=== PATIENT | male | born 1970 | race Two or more races ===

== ENCOUNTER 2024-05-29 17:17 | Inpatient (IN) | payer MEDICAID, OTHER ==
[~2024-05-29] VITALS: Ht 190.5 cm; Wt 113.8 kg
[~2024-05-29 17:17] MED LIST: ALLO100T PO; AMIO200T33 PO; APIX5TAB PO; ATOR-507 PO; DIGO0.12 PO; FURO20TA3 PO; LISI-275 PO; METO-289 PO; SPIR25TA8 PO; TIRZ2.5I2 SC
--- NOTE | 2024-05-29 17:38 | ED.PDOC ---
HPI Comments HPI: Poor Historian. 53-year-old male presents to emergency department for evaluation of palpitation that started at 9:30 a.m. this morning. Palpitations has been constant. Denies any associated chest pain or shortness of breath. He went on a treadmill today as well and did approximately 3 miles. Patient came for c/o palpitations this morning. On arrival of ED triage, patient v-tach. The family states EF is 20%. Patient took all his medications this morning including Eliquis. Initial Vitals: T:97.7 RR:18 O2:100% HR:180 BP:99/66 Past Medical History: A-Fib, CHF, DM, HDL, Gout, HTN Past Surgical History: Denies Social History: Denies smoking, ETOH, or drug use. Medications: Eliquis, Lisinopril, Amiodarone, Inhaler, Spironolactone Allergies: Ampicillin REVIEW OF SYSTEMS: CONSTITUTIONAL: Denies acute: fever, diaphoresis, chills, generalized weakness. HEAD: Denies acute: headache, photophobia Eyes: Denies acute: Double vision, vision loss, eye pain, eye discharge. EARS: Denies acute: tinnitus, hearing loss, ear discharge, ear pain, THROAT: Denies acute: sore throat, swelling, difficulty swallowing , pain with swallowing, change in voice. NECK: Denies acute: neck pain, neck swelling, stiff neck. HEART: Denies acute : chest pain, LUNGS: Denies acute: SOB, wheezing, cough, hemoptysis ABDOMEN: Denies acute: abdominal pain, Nausea, Vomiting, diarrhea, melena , hematemesis, hematochezia SKIN: Denies acute: rash, redness, lesions, itchiness. EXTREMITIES: Denies acute: calf pain, numbness, tingling, weakness, denies pain in extremity. Denies acute: Low back pain. Neuro: Denies acute: focal neurological deficit, motor or sensory focal neurological deficit, tremors, seizure like activity, confusion, dizziness, change in mental status, loss of bowel or bladder function, cauda equina like symptoms. : Denies acute: dysuria, hematuria, flank pain, increase in urinary frequency. PSYCH: Denies acute: hallucination, suicidal ideation, homicidal ideation. PHYSICAL EXAM: General: no acute distress, awake and alert. Head: normocephalic, atraumatic. Neck: supple, trachea is midline, no swelling. Throat: Normal phonation. Eyes:, no erythema, no purulent discharge, no proptosis, no icterus. Heart: regular tachycardic, no significant murmur appreciated. Lungs: no apparent respiratory distress, Able to speak in full sentences. No wheezing, no rhonchi, no crackles. No stridors Clear to auscultation bilaterally. Abdomen: non tender to palpation, non distended, soft, no guarding, no rebound, + bowel sounds. Neuro: Awake, Alert, oriented to name, self, situation, follows commands GCS=15. Speech is normal. Skin: no petechia, no purpura, no cyanosis, non-pale, not jaundice. Lower extremities: --no - Pitting edema no deformity, no focal swelling, no calf TTP. Makes eye contact. moves all four extremities. Face: no apparent facial droop. At approximately 9:45 p.m. we started the cardioversion process. Patient was consented for conscious sedation. Sedation used was Versed 5 mg IV then ketamine 50 mg IV. Patient was cardioverted using 150 joules synchronized. Patient achieved sinus rhythm post cardioversion. Patient did not respond to our chemical intervention earlier with amiodarone and magnesium and metoprolol. Patient has started to become diaphoretic but denies any chest pain or shortness of breath. Vital signs remained stable. We decided to go on with the cardioversion since patient is not responding to chemical intervention. Chief Complaint: Palpitations Time Seen by MD: 17:33 Reviewed Notes: Nurses Notes, Medications, Allergies Allergies: Coded Allergies: Ampicillin (Verified Allergy, Unknown, 05/29/24) Information Source: Patient Mode of Arrival: Ambulatory EKG EKG : Pulse Rate (adult): 180 [place]: Normal Cardiac Rhythm: VT Block: None Hypertrophy: None ST: Normal Was a procedure done? Was a procedure done?: No X-Ray, Labs, Meds, VS Vital Signs Date Time Temp Pulse Resp B/P (MAP) Pulse Ox O2 Delivery O2 Flow Rate FiO2 05/29/24 22:05 66 18 142/68 (92) 95 05/29/24 22:00 64 18 142/64 (90) 95 05/29/24 21:58 65 05/29/24 21:55 64 18 126/60 (82) 95 05/29/24 21:53 64 05/29/24 21:51 157 106/68 05/29/24 21:50 157 18 106/68 (81) 95 05/29/24 21:42 161 05/29/24 21:07 162 93/67 05/29/24 20:51 164 109/74 05/29/24 20:26 165 05/29/24 20:09 164 109/61 05/29/24 19:30 170 18 95 Room Air* 0 21 05/29/24 19:30 98.0 170 18 98/60 (73) 95 98.0 05/29/24 19:01 155 20 98/60 (73) 96 05/29/24 18:50 174 05/29/24 18:24 174 21 96/51 (66) 93 05/29/24 17:44 181 05/29/24 17:40 180 15 93 Room Air* 0 05/29/24 17:40 182 05/29/24 17:39 180 05/29/24 17:38 180 05/29/24 17:32 97.7 180 18 99/66 (77) 100 Lab Test 05/29/24 21:14 05/29/24 20:45 05/29/24 18:35 05/29/24 17:40 Range/Units POC Glucose 166 H 70-106 mg/dl Lactic Acid Level 2.3 *H 2.5 *H 0.4-2.0 mmol/L Troponin I High Sensitivity 1116 *H 831 *H 708 *H </=54 ng/L White Blood Count 11.2 H 4.4-10.8 10^3/uL Red Blood Count 5.43 4.5-5.90 10^6/uL Hemoglobin 16.9 13.5-17.5 g/dL Hematocrit 51.0 41.0-53.0 % Mean Corpuscular Volume 94.1 80.0-100.0 fL Mean Corpuscular Hemoglobin 31.1 28.0-32.0 pg Mean Corpuscular Hemoglobin Concent 33.0 32.0-36.0 g/dL Red Cell Distribution Width 15.7 H 11.8-14.3 % Platelet Count 167 140-450 10^3/uL Mean Platelet Volume 11.5 H 6.9-10.8 fL Neutrophils (%) (Auto) 84.1 H 37.0-80.0 % Lymphocytes (%) (Auto) 12.2 10.0-50.0 % Monocytes (%) (Auto) 3.4 0.0-12.0 % Eosinophils (%) (Auto) 0.0 0.0-7.0 % Basophils (%) (Auto) 0.3 0.0-2.0 % Neutrophils # (Auto) 9.4 H 1.6-8.6 10 ^3/uL Lymphocytes # (Auto) 1.4 0.4-5.4 10 ^3/uL Monocytes # (Auto) 0.4 0-1.3 10 ^3/uL Eosinophils # (Auto) 0 0-0.8 10 ^3/uL Basophils # (Auto) 0 0-0.2 10 ^3/uL Nucleated Red Blood Cells 0.2 % Sodium Level 136 136-145 mmol/L Potassium Level 5.4 H 3.5-5.1 mmol/L Chloride Level 103 98-107 mmol/L Carbon Dioxide Level 21 20-31 mmol/L Anion Gap 12 5-15 Blood Urea Nitrogen 31 H 9-23 mg/dL Creatinine 2.67 H 0.700-1.30 mg/dL Glomerular Filtration Rate Calc 28 >90 mL/min BUN/Creatinine Ratio 11.6 10.0-20.0 Serum Glucose 154 H 74-106 mg/dL Calcium Level 10.7 H 8.7-10.4 mg/dL Magnesium Level 2.2 1.6-2.6 mg/dL Total Bilirubin 1.2 H 0.2-1.0 mg/dL Aspartate Amino Transferase (AST) 204 H 13-40 U/L Alanine Aminotransferase (ALT) 322 H 7-40 U/L Alkaline Phosphatase 92 46-116 U/L B-Type Natriuretic Peptide 194.63 0-100 pg/mL Total Protein 7.7 5.7-8.2 g/dL Albumin 4.6 3.2-4.8 g/dL Current Medications Medications (Trade) Dose Ordered Sig/Howard Route Start Time Stop Time Status Last Admin Amiodarone HCl 100 ml @ 618 mls/hr ONCE ONCE IV 05/29/24 17:30 05/29/24 17:39 DC 05/29/24 17:59 Amiodarone HCl 250 ml @ 33.333 mls/ hr Q7H30M IV 05/29/24 17:45 05/29/24 23:44 DC 05/29/24 19:46 Magnesium Sulfate/ Dextrose 100 ml @ 100 mls/hr ONCE ONCE IV 05/29/24 17:45 05/29/24 18:44 DC 05/29/24 18:22 Amiodarone HCl 100 ml @ 618 mls/hr ONCE ONCE IV 05/29/24 18:30 05/29/24 18:39 DC 05/29/24 19:14 Metoprolol Tartrate (Lopressor) 5 mg ONCE ONCE IV 05/29/24 19:45 05/29/24 20:04 DC 05/29/24 20:09 Metoprolol Tartrate (Lopressor) 5 mg ONCE ONCE IV 05/29/24 20:30 05/29/24 20:47 DC 05/29/24 20:51 Midazolam HCl (Versed Injection) 5 mg ONCE ONCE IV 05/29/24 21:30 05/29/24 21:31 DC 05/29/24 21:42 Ketamine HCl (Ketalar) 50 mg ONCE ONCE IV 05/29/24 22:30 05/29/24 22:41 DC 05/29/24 22:42 Time of 1ST Reevaluation: 17:33 Reevaluation 1ST: Unchanged Time of 2ND Reevaluation: 19:30 (The case was discussed with the admitting team (HPI, physical exam, labs and diagnostic tests that were available at the time of disposition, ED course, treatment plan) on the phone. They agreed to admit the patient to their service and assume care of this patient from this point forward. WILNER Cardozo. ) Time of 3RD Reevaluation: 19:43 (The case was discussed with the cardiology team (HPI, physical exam, labs and diagnostic tests that were available at the time of disposition, ED course, treatment plan) on the phone. They recommend starting the patient on amiodarone drip and give the patient metoprolol 5 mg IV. They recommended if the patient is unstable to cardiovert the patient. They said they will follow up in consult. ) Patient Education/Counseling: Diagnosis, Treatment Family Education/Counseling: Diagnosis, Treatment Departure 1 Departure Time of Disposition: 19:28 Impression: Primary Impression: Ventricular tachyarrhythmia Additional Impression: Elevated troponin Disposition: 09 ADMITTED INPATIENT Admit to: [facility] Condition: Critical Discharged With: Self Critical Care Note Critical Care Time?: No I personally scribed for KASSY PORTER DO ([email or web address]) on 05/29/24 at 17:38. Electronically submitted by Jamal Oglesby [email or web address]). I personally scribed for KASSY PORTER DO ([email or web address]) on 05/29/24 at 19:50. Electronically submitted by Eliud Ramsey ([email or web address]). KASSY PORTER DO May 29, 2024 17:38
[2024-05-29 17:40] VITALS: PULSE 180; RESP 15; O2SAT 93
[2024-05-29] MEDS: AMIODARONE BOLUS KIT 100 ML IV ONE ×2 (17:59→19:14)
[2024-05-29 18:03] LABS: Basophils # (auto) 0 10 ^3/uL (0-0.2); Basophils % (auto) 0.3 % (0.0-2.0); Eosinophils # (auto) 0 10 ^3/uL (0-0.8); Hemoglobin 16.9 g/dL (13.5-17.5); Lymphocytes # (auto) 1.4 10 ^3/uL (0.4-5.4); Lymphocytes % (auto) 12.2 % (10.0-50.0); Mean Corpuscular Hemoglobin 31.1 pg (28.0-32.0); Mean Corpuscular Volume 94.1 fL (80.0-100.0); Monocytes # (auto) 0.4 10 ^3/uL (0-1.3); Monocytes % (auto) 3.4 % (0.0-12.0); Neutrophils # (auto) 9.4 10 ^3/uL (1.6-8.6); Neutrophils % (auto) 84.1 % (37.0-80.0); Nucleated Red Blood Cells % 0.2 %; Platelet Count (auto) 167 10^3/uL (140-450); Red Blood Cells 5.43 10^6/uL (4.5-5.90); Red Cell Distribution Width 15.7 % (11.8-14.3); White Blood Cell 11.2 10^3/uL (4.4-10.8)
--- NOTE | 2024-05-29 18:08 | DVH ---
CHEST RADIOGRAPH Indication: palpitations Technique: Single frontal view of the chest was obtained Comparison: None FINDINGS: Lines and Tubes: None. Defibrillator pads overlying the left chilo thorax. Lungs: No focal consolidation. Pleura: No effusion. No pneumothorax. Cardiomediastinal contours: Cardiomegaly. Bones: No acute osseous abnormality. IMPRESSION: 1. Cardiomegaly. HS:Y
[2024-05-29 18:14] LABS: Albumin 4.6 g/dL (3.2-4.8); Alkaline Phosphatase 92 U/L (46-116); BUN/Creatinine Ratio 11.6 (10.0-20.0)
[2024-05-29 18:15] LABS: Total Protein 7.7 g/dL (5.7-8.2)
[2024-05-29 18:22] LABS: Chloride 103 mmol/L (98-107); Sodium 136 mmol/L (136-145)
[2024-05-29] MEDS: MAGNESIUM SULFATE 1GM/100ML 100 ML IV ONE (18:22)
[2024-05-29 18:25] LABS: Potassium 5.4 mmol/L (3.5-5.1)
[2024-05-29 18:26] LABS: Alanine Aminotransferase 322 U/L (7-40); Aspartate Aminotransferase 204 U/L (13-40); Bilirubin, Total 1.2 mg/dL (0.2-1.0); Blood Urea Nitrogen 31 mg/dL (9-23); Calcium 10.7 mg/dL (8.7-10.4); Glucose 154 mg/dL (74-106)
[2024-05-29 18:29] LABS: Anion Gap 12 (5-15); Carbon Dioxide 21 mmol/L (20-31)
[2024-05-29 19:20] LABS: Lactic Acid w/Reflex 2.5 mmol/L (0.4-2.0)
[2024-05-29 19:30] VITALS: PULSE 170; RESP 18; O2SAT 95
[2024-05-29] MEDS: AMIODARONE 450mg/250ml AE 250 ML IV SCH (19:46)
[2024-05-29] MEDS: METOPROLOL TARTRATE 1MG/1ML-5ML VIAL IV ONE ×2 (20:09→20:51)
[2024-05-29] MEDS: KETAMINE 50mg/ML 10ml Vial 10 ML ONE (21:41)
[2024-05-29] MEDS: MIDAZOLAM HCL 5 MG/ML-1ML VIAL IV ONE (21:42)
[2024-05-29] MEDS ORDERED: NITROGLYCERIN 0.4 MG SL TAB SL PRN (22:30)
[2024-05-29] MEDS ORDERED: MORPHINE SULFATE INJ 2 MG/ml SYRG IV PRN (22:30)
[2024-05-29] MEDS ORDERED: DEXTROSE (50%) 50ML SYRG IV PRN (22:30)
[2024-05-29] MEDS: KETAMINE 50mg/ML 10ml Vial (500mg/10ml) IV ONE (22:42)
[2024-05-29 23:22] LABS: Chloride 102 mmol/L (98-107)
[2024-05-29 23:23] LABS: Anion Gap 11 (5-15); Carbon Dioxide 22 mmol/L (20-31)
[2024-05-29 23:28] LABS: BUN/Creatinine Ratio 11.4 (10.0-20.0)
[2024-05-29 23:33] LABS: Blood Urea Nitrogen 24 mg/dL (9-23); Glucose 141 mg/dL (74-106); Potassium 5.3 mmol/L (3.5-5.1); Sodium 135 mmol/L (136-145)
[2024-05-29 23:59] VITALS: PULSE 64; RESP 19; O2SAT 97
[2024-05-30] MEDS: HEPARIN SODIUM (PORCINE) 5000 UNITS/ML 1ML VIAL SC ONE (00:12)
--- NOTE | 2024-05-30 00:41 | DVHHP2 ---
Admitting Diagnosis: Ventricular tachycardia, JEY, hyperkalemia, Elevated troponin levels History of Present Illness History Source: Patient Exam Limitations: No limitations HPI Mr. Filiberto Perea is a 53 yo male with a history of atrial fibrillation, CHF, DM who presents with a chief complaint of palpitations. Patient reports x 1 day he started having palpitations denies any associated chest pain, dizziness, nausea, vomiting. Patient was started on amiodarone drip in the ED with no changes in cardiac rhythm, metoprolol IV and was then cardioverted into a sinus rhythm in the 60's. Patient with troponin levels 708, 831, BUN 31/2.67 creatinine, liver enzymes AST 204, ALT 322. Patient endorses he feels better now. Patient admitted for further evaluation. Home Meds Reported Medications Tirzepatide (Zepbound) 2.5 Mg/0.5 Ml Inj, 0.5 ML SC QWEEKLY for 28 Days, #2 05/30/24 Lisinopril (Lisinopril) 5 Mg Tab, 1 TAB PO DAILY for 90 Days, #90 05/30/24 Apixaban Base (ELIQUIS) 5 Mg Tab, 1 TAB PO BID for 90 Days, #180 05/30/24 Amiodarone Hcl (Amiodarone Hcl) 200 Mg Tab, 1 TAB PO DAILY for 90 Days, #90 05/30/24 Allopurinol (Allopurinol) 100 Mg Tab, 1 TAB PO DAILY for 30 Days, #30 05/30/24 Atorvastatin Calcium (Lipitor) 40 Mg Tab, 1 TAB PO DAILY for 90 Days, #90 05/30/24 Furosemide (Furosemide) 20 Mg Tab, 1 TAB PO DAILY for 30 Days, #30 05/30/24 Metoprolol Succinate (Metoprolol Succinate Er) 50 Mg Tab, 100 MG PO DAILY for 30 Days, #30 05/30/24 Spironolactone (Spironolactone) 25 Mg Tab, 1 TAB PO DAILY for 90 Days, #90 05/30/24 Digoxin (Digoxin) 125 Mcg Tab, 1 TAB PO DAILY for 30 Days, #30 05/30/24 Past Medical History Cardiac: AFIB, CHF Pulmonary: No pertinent Hx Central Nervous System: No pertinent Hx GI: No pertinent Hx Hemotology/Oncology: No pertinent Hx Hepatobiliary: No pertinent Hx Psychiatric: No pertinent Hx Musculoskeletal: No pertinent Hx Rheumotologic: No pertinent Hx Infectious Disease: No peritnent Hx ENT: No pertinent Hx Renal/: No pertinent Hx Endocrine: NIDDM Dermatology: No pertinent Hx Smoker: No Hx (Negative) Alocohol: None Drugs: None Lives with: With family Domestic Violence: Neg Review of Systems Constitutional: No symptom reported Ears, Nose, & Throat: No symptom reported Eyes: No symptom reported Pulmonary/Respiratory: No symptom reported Cardiovascular: No symptom reported Gastrointestinal: No symptom reported Genitourinary: No symptom reported Musculoskeletal: No symptom reported Skin: No symptom reported Psychiatric: No symptom reported Endocrine: No symptom reported Hemotologic/Lymphatic: No symptom reported H&P Exam Vital Signs Vital Signs Date Time Temp Pulse Resp B/P (MAP) Pulse Ox O2 Delivery O2 Flow Rate FiO2 05/29/24 23:59 97.8 64 19 106/42 (63) 97 97.8 05/29/24 19:30 Room Air* 0 21 General Appeara: Well developed, Well nourished, Normal Appearance Head Exam: Normal inspection Neck Exam: Normal inspection, Non-tender, Normal alignment Eye Exam: bilateral eye Normal inspection, bilateral eye PERRL, bilateral eye EOMI Ear Exam: bilateral ear Auricle normal Nasal Exam: Normal inspection Mouth: Normal Inspection Pulmonary/Respiratory: Normal inspection, Normal breath sounds, Chest non- tender, Lungs clear Cardiovascular/Chest: Normal inspection, Regular rate, Normal Rhythm Peripheral Pulses: 2+ dorsalis pedis (R), 2+ dorsalis pedis (L), 2+ Radial (R), 2+ Radial (L) Abdominal Exam: Normal bowel sounds, Soft Rectal Exam: Deferred, Normal inspection Back Exam: Normal inspection Male Genital Exam: Not done RESPITE CARE PROVIDER Exam: Normal hearing, Normal speech, PERRL Neuro/Mental St: Alert, Oriented Appearance: Appropriate appearance, Appropriate insight Eye contact/ Speech: Cooperative, Good eye contact, Normal speech Thoughts/Psych: Normal thought pattern Skin Exam: Normal inspection, Normal color, Warm/dry Labs/Xrays Labs Test 05/29/24 23:04 05/29/24 21:14 05/29/24 20:45 05/29/24 17:40 Range/Units Sodium Level 135 L 136-145 mmol/L Potassium Level 5.3 H 3.5-5.1 mmol/L Chloride Level 102 98-107 mmol/L Carbon Dioxide Level 22 20-31 mmol/L Anion Gap 11 5-15 Blood Urea Nitrogen 24 H 9-23 mg/dL Creatinine 2.11 H 0.700-1.30 mg/dL Glomerular Filtration Rate Calc 37 >90 mL/min BUN/Creatinine Ratio 11.4 10.0-20.0 Serum Glucose 141 H 74-106 mg/dL Calcium Level 10.0 8.7-10.4 mg/dL Troponin I High Sensitivity 1176 *H </=54 ng/L POC Glucose 166 H 70-106 mg/dl Lactic Acid Level 2.3 *H 0.4-2.0 mmol/L White Blood Count 11.2 H 4.4-10.8 10^3/uL Red Blood Count 5.43 4.5-5.90 10^6/uL Hemoglobin 16.9 13.5-17.5 g/dL Hematocrit 51.0 41.0-53.0 % Mean Corpuscular Volume 94.1 80.0-100.0 fL Mean Corpuscular Hemoglobin 31.1 28.0-32.0 pg Mean Corpuscular Hemoglobin Concent 33.0 32.0-36.0 g/dL Red Cell Distribution Width 15.7 H 11.8-14.3 % Platelet Count 167 140-450 10^3/uL Mean Platelet Volume 11.5 H 6.9-10.8 fL Neutrophils (%) (Auto) 84.1 H 37.0-80.0 % Lymphocytes (%) (Auto) 12.2 10.0-50.0 % Monocytes (%) (Auto) 3.4 0.0-12.0 % Eosinophils (%) (Auto) 0.0 0.0-7.0 % Basophils (%) (Auto) 0.3 0.0-2.0 % Neutrophils # (Auto) 9.4 H 1.6-8.6 10 ^3/uL Lymphocytes # (Auto) 1.4 0.4-5.4 10 ^3/uL Monocytes # (Auto) 0.4 0-1.3 10 ^3/uL Eosinophils # (Auto) 0 0-0.8 10 ^3/uL Basophils # (Auto) 0 0-0.2 10 ^3/uL Nucleated Red Blood Cells 0.2 % Magnesium Level 2.2 1.6-2.6 mg/dL Total Bilirubin 1.2 H 0.2-1.0 mg/dL Aspartate Amino Transferase (AST) 204 H 13-40 U/L Alanine Aminotransferase (ALT) 322 H 7-40 U/L Alkaline Phosphatase 92 46-116 U/L B-Type Natriuretic Peptide 194.63 0-100 pg/mL Total Protein 7.7 5.7-8.2 g/dL Albumin 4.6 3.2-4.8 g/dL Assessment/Plan Problem List: (1) Ventricular tachyarrhythmia (2) Elevated troponin (3) JEY (acute kidney injury) Plan 53 yo male with known history of a fib , CHF, DM presents to the hospital with palpitations. Patient was found to have 1. Ventricular tachycardia 2. Elevated troponin levels 3. Acute Kidney Injury 4. Transaminitis 5. Hyperkalemia mild Admitted to [facility] post cardioversion in ED Cardiology consultation, 2D echocardiogram, serial troponin levels, ASA, Statin Continue amiodarone drip per protocol Gastroenterology consultation Glucose monitoring ac & hs coverage with insulin sliding scale Monitor BMP Lokelma PO x 1 GI ppx DVT ppx Discussed assessment and care plan with patient who verbalizes agreement and understanding of care plan. All questions were answered. Discussed care plan with patient nurse Renaldo PINEDA. Discussed assessment and care plan with supervising MD. Plan discussed with: Patient, Other Code Visit Code Visit Total Time (mins): 45 Additional Comments Additional Comments Additional Comments 53 yo male with known history of chronic AFib, diabetes mellitus type 2, hypertension, congestive heart failure initially presented to the hospital with a palpitation found to have 1. AFib with RVR converted into sinus rhythm after amiodarone. 2. Ventricular tachyarrhythmia 3. Elevated troponin suspect NSTEMI 4. Acute kidney injury suspected secondary to vasomotor nephropathy 5. Transaminitis 6. Hyperkalemia -continue heparin drip, 2D echo cardiology consultation patient went -plan of care discussed with the patient patient's family member at bedside LISA MARIE May 30, 2024 00:41 RENEE YUAN MD May 30, 2024 16:09
[2024-05-30 00:47] LABS: Urine Bacteria None Seen /hpf (None Seen)
[2024-05-30] MEDS: SODIUM ZIRCONIUM CYCL 10 GM PAK PO ONE (00:56)
[2024-05-30 01:25] LABS: Urine Blood Negative /uL (Negative); Urine Clarity Clear (Clear); Urine Color Yellow (Yellow); Urine Protein, UAD TRACE (Negative); Urine Specific Gravity 1.024 (1.001-1.035); Urine Urobilinogen Normal (Negative); Urine WBC <1 /hpf (0 - 3)
[2024-05-30] MEDS ORDERED: HEPARIN DRIP/D5W 100UNITS/ML 250 ML IV SCH (01:30)
[2024-05-30 01:31] LABS: Amphetamine Screen, Urine Neg (NEGATIVE); Barbiturate Scree,Urine Neg (NEGATIVE); Benzodiazephine Screen, Urine Pos (NEGATIVE); Cannabinoid Screen, Urine Neg (NEGATIVE); Cocaine Screen, Urine Neg (NEGATIVE); Opiate Scree,Urine Neg (NEGATIVE); Phencyclidine Screen, Urine Neg (NEGATIVE)
[2024-05-30 02:04] LABS: Basophils # (auto) 0 10 ^3/uL (0-0.2); Basophils % (auto) 0.4 % (0.0-2.0); Eosinophils # (auto) 0 10 ^3/uL (0-0.8); Eosinophils % (auto) 0.3 % (0.0-7.0); Hematocrit 44.9 % (41.0-53.0); Hemoglobin 14.9 g/dL (13.5-17.5); Lymphocytes # (auto) 1.7 10 ^3/uL (0.4-5.4); Lymphocytes % (auto) 15.5 % (10.0-50.0); Mean Corpuscular Hemoglobin 31.1 pg (28.0-32.0); Mean Corpuscular Hgb Conc. 33.3 g/dL (32.0-36.0); Mean Corpuscular Volume 93.5 fL (80.0-100.0); Monocytes # (auto) 0.7 10 ^3/uL (0-1.3); Monocytes % (auto) 6.3 % (0.0-12.0); Neutrophils # (auto) 8.7 10 ^3/uL (1.6-8.6); Neutrophils % (auto) 77.5 % (37.0-80.0); Nucleated Red Blood Cells % 0.1 %; Platelet Count (auto) 158 10^3/uL (140-450); Red Cell Distribution Width 15.7 % (11.8-14.3); White Blood Cell 11.2 10^3/uL (4.4-10.8)
[2024-05-30 02:20] LABS: INR 1.43 (0.9-1.15); Partial Thromboplastin Time 63.9 SEC (24.5-34.5); Prothrombin Time 14.8 sec (9.3-11.8)
[2024-05-30] MEDS: HEPARIN DRIP/D5W 100UNITS/ML 250 ML IV SCH ×3 (03:31→19:40)
[2024-05-30 05:33] LABS: Anion Gap 9 (5-15); Blood Urea Nitrogen 26 mg/dL (9-23); Calcium 9.5 mg/dL (8.7-10.4); Carbon Dioxide 22 mmol/L (20-31); Chloride 101 mmol/L (98-107); Glucose 139 mg/dL (74-106); Potassium 4.1 mmol/L (3.5-5.1); Sodium 132 mmol/L (136-145)
--- NOTE | 2024-05-30 06:43 | ECG ---
[facility] Test Date: 2024-05-29 Test Time: 18:50:35 Pat Name: LEN NUNEZ Department: ER Room: 0287T Gender: M Java Spring Developer: MALCOLM : 1970 Requested By: KASSY PORTER Order Number: [id number] Reading MD: Mark Desai Measurements Intervals [place] Rate: 174 P: 0 TN: 118 QRS: 93 QRSD: 215 T: 90 QT: 310 QTc: 528 Interpretive Statements Extreme tachycardia with wide complex, no further rhythm analysis attempted Baseline wander in lead(s) I,II,III,aVL,aVF,V1,V2,V3,V4,V5,V6 Electronically Signed On 06-01-2024 12:39:57 PST by Mark Desai Please click the below link to view image of tracing.
--- NOTE | 2024-05-30 06:44 | ECG ---
[facility] Test Date: 2024-05-29 Test Time: 20:26:01 Pat Name: LEN NUNEZ Department: ED Room: 0287T Gender: M Technician Support Engineer: JASON : 1970 Requested By: KASSY PORTER Order Number: [id number] Reading MD: Mark Desai Measurements Intervals [place] Rate: 165 P: 68 CO: 73 QRS: 91 QRSD: 221 T: 88 QT: 352 QTc: 583 Interpretive Statements Sinus tachycardia Consider right atrial enlargement LVH with IVCD and secondary repol abnrm Prolonged QT interval Baseline wander in lead(s) V1,V2,V3,V5 Electronically Signed On 06-01-2024 12:40:16 PST by Mark Desai Please click the below link to view image of tracing.
[2024-05-30] MEDS: InsuLIN REG 1unit/0.01ml Soln (100units/ml) SC SCH (06:45)
[2024-05-30] MEDS: ACCU-CHEK COMFORT CURVE STRIP VI SCH (06:45)
--- NOTE | 2024-05-30 06:45 | ECG ---
[facility] Test Date: 2024-05-29 Test Time: 21:58:49 Pat Name: LEN NUNEZ Department: ED Room: 0287T Gender: M Ruby On Rails Consultant: JASON : 1970 Requested By: KASSY PORTER Order Number: [id number] Reading MD: Mark Desai Measurements Intervals [place] Rate: 65 P: 53 IN: 202 QRS: -46 QRSD: 111 T: -74 QT: 430 QTc: 448 Interpretive Statements Sinus rhythm Ventricular premature complex Borderline prolonged IN interval Left atrial enlargement Left anterior fascicular block Probable anterior infarct, age indeterminate Electronically Signed On 06-01-2024 12:41:38 PST by Mark Desai Please click the below link to view image of tracing.
--- NOTE | 2024-05-30 06:46 | ECG ---
[facility] Test Date: 2024-05-30 Test Time: 00:39:10 Pat Name: LEN NUNEZ Department: ED Room: 0287T Gender: M Party Plan Sales Agent: JASON : 1970 Requested By: LISA MARIE Order Number: [id number] Reading MD: Mark Desai Measurements Intervals [place] Rate: 64 P: 58 CO: 188 QRS: -44 QRSD: 137 T: 243 QT: 446 QTc: 461 Interpretive Statements Sinus rhythm Consider left atrial enlargement RBBB and LAFB Nonspecific T abnormalities, lateral leads Electronically Signed On 06-01-2024 12:42:44 PST by Makr Desai Please click the below link to view image of tracing.
[2024-05-30 07:50] VITALS: PULSE 64; RESP 16; O2SAT 95
[2024-05-30 10:33] LABS: INR 1.31 (0.9-1.15); Prothrombin Time 13.6 sec (9.3-11.8)
[2024-05-30] MEDS: FUROSEMIDE 40 MG/4 ML VIAL IV ONE (11:19)
[2024-05-30 11:21] LABS: Albumin 3.9 g/dL (3.2-4.8); Bilirubin, Total 0.9 mg/dL (0.2-1.0); Total Protein 6.8 g/dL (5.7-8.2)
[2024-05-30 11:22] LABS: Bilirubin, Direct 0.4 mg/dL (<0.3)
--- NOTE | 2024-05-30 11:51 | DVHINCON2 ---
GI Consult Consult Note GI consult note Date of Consultation: 05/30/2024 Chief Complaint: Elevated LFTs Referring Physician: Atilio DARBY H&P: 53-year-old male presented with palpitations No history of liver problems in past per patient No abdominal pain. No nausea or vomit. No melena or red blood in stool Patient has history of heavy alcohol use, quit four years ago. Denies use of Tylenol Patient does take cholesterol medication for the past 1-2 years Past Medical History: A-Fib, CHF, DM, HDL, Gout, HTN Past Surgical History: Denies Social History: NO smoking, quit four years drinking ETOH Family History: Noncontributory Review of Systems: Constitutional: no fever, chill, weight loss HEENT: no eye pain, no hearing loss, no oral lesion, no scleral icterus Heart: no chest pain, no chest pressure Lung: no cough, no dyspnea with exertion Abdomen: see HPI Physical exam: General: NAD, AAOX3 Chest: lung jo clear to auscultation Heart: RRR, no murmur Abdomen: non-distended, no tenderness to palpation, +BS Labs: Labs Test 05/30/24 09:45 05/30/24 06:40 05/30/24 04:30 05/30/24 01:52 Range/Units Prothrombin Time 13.6 H 9.3-11.8 sec Prothrombin Time INR 1.31 H 0.9-1.15 Activated Partial Thromboplast Time 41.0 H 24.5-34.5 SEC POC Glucose 128 H 70-106 mg/dl Sodium Level 132 L 136-145 mmol/L Potassium Level 4.1 3.5-5.1 mmol/L Chloride Level 101 98-107 mmol/L Carbon Dioxide Level 22 20-31 mmol/L Anion Gap 9 5-15 Blood Urea Nitrogen 26 H 9-23 mg/dL Creatinine 1.63 H 0.700-1.30 mg/dL Glomerular Filtration Rate Calc 51 >90 mL/min BUN/Creatinine Ratio 16.0 10.0-20.0 Serum Glucose 139 H 74-106 mg/dL Calcium Level 9.5 8.7-10.4 mg/dL Total Bilirubin 0.9 0.2-1.0 mg/dL Direct Bilirubin 0.4 H <0.3 mg/dL Aspartate Amino Transferase (AST) 146 H 13-40 U/L Alanine Aminotransferase (ALT) 295 H 7-40 U/L Alkaline Phosphatase 74 46-116 U/L Troponin I High Sensitivity 1078 *H </=54 ng/L Total Protein 6.8 5.7-8.2 g/dL Albumin 3.9 3.2-4.8 g/dL White Blood Count 11.2 H 4.4-10.8 10^3/uL Red Blood Count 4.80 4.5-5.90 10^6/uL Hemoglobin 14.9 13.5-17.5 g/dL Hematocrit 44.9 # 41.0-53.0 % Mean Corpuscular Volume 93.5 80.0-100.0 fL Mean Corpuscular Hemoglobin 31.1 28.0-32.0 pg Mean Corpuscular Hemoglobin Concent 33.3 32.0-36.0 g/dL Red Cell Distribution Width 15.7 H 11.8-14.3 % Platelet Count 158 140-450 10^3/uL Mean Platelet Volume 11.3 H 6.9-10.8 fL Neutrophils (%) (Auto) 77.5 37.0-80.0 % Lymphocytes (%) (Auto) 15.5 10.0-50.0 % Monocytes (%) (Auto) 6.3 0.0-12.0 % Eosinophils (%) (Auto) 0.3 0.0-7.0 % Basophils (%) (Auto) 0.4 0.0-2.0 % Neutrophils # (Auto) 8.7 H 1.6-8.6 10 ^3/uL Lymphocytes # (Auto) 1.7 0.4-5.4 10 ^3/uL Monocytes # (Auto) 0.7 0-1.3 10 ^3/uL Eosinophils # (Auto) 0 0-0.8 10 ^3/uL Basophils # (Auto) 0 0-0.2 10 ^3/uL Nucleated Red Blood Cells 0.1 % Test 05/30/24 00:42 05/29/24 20:45 05/29/24 17:40 Range/Units Urine Color Yellow Yellow Urine Clarity Clear Clear Urine pH 5.0 5.0-9.0 Urine Specific [place] 1.024 1.001-1.035 Urine Protein Trace H Negative Urine Ketones Trace Negative Urine Blood Negative Negative /uL Urine Nitrite Negative Negative Urine Bilirubin Negative Negative Urine Urobilinogen Normal Negative mg/dL Urine Leukocyte Esterase Negative Negative /uL Urine RBC 1 0 - 3 /hpf Urine WBC <1 0 - 3 /hpf Urine Squamous Epithelial Cells Few <5 /hpf Urine Bacteria None seen None Seen /hpf Urine Glucose Normal Normal mg/dL Urine Opiates Screen Neg NEGATIVE Urine Fentanyl Screen Neg NEGATIVE Urine Barbiturates Screen Neg NEGATIVE Urine Phencyclidine Screen Neg NEGATIVE Urine Amphetamines Screen Neg NEGATIVE Urine Benzodiazepines Screen Pos NEGATIVE Urine Cocaine Screen Neg NEGATIVE Urine Cannabinoids Screen Neg NEGATIVE Lactic Acid Level 2.3 *H 0.4-2.0 mmol/L Magnesium Level 2.2 1.6-2.6 mg/dL B-Type Natriuretic Peptide 194.63 0-100 pg/mL Imaging: Assessment: Ventricular tachycardia History of AFib Elevated LFTs History heavy alcohol in past Plan: Discussed with Dr. Villagran Monitor labs Ultrasound of liver Hepatitis panel Cardiology consult pending We will continue to monitor the patient Discussed plan with patient and RN Thank you for this consult Date of Service: May 30, 2024 Billing Provider: MARY FLORES Common Visit Codes: CONSULT ONLY Consultation Codes: 59260-[id number] CONSULT <60MIN MARY FLORES May 30, 2024 11:51
--- NOTE | 2024-05-30 12:34 | DVH ---
ULTRASOUND ABDOMEN LIMITED INDICATION: elevated LFTs TECHNIQUE: Multiple real-time sonographic images of the abdomen were obtained. COMPARISON: None FINDINGS: The left hepatic lobe is not adequately seen on the current study. The visualized liver parenchyma appears homogenous . The liver measures 15 cm. No discrete hepatic lesion or intrahepatic bilia ry ductal dilatation is identified. There is no evidence of gallstones, gallbladder wall thickening or pericholecystic fluid. The common biliary duct is not dilated. The right kidney measures 11.7 cm length. No sonographic evidence of nephrolithiasis or hydronephro sis. Pancreas is obscured by bowel gas. IMPRESSION: 1. Limited ultrasound study with nonvisualization of the left hepatic lobe and pancreas. 2. Remaining right upper abdominal structures appear within normal limits. HS:Y
--- NOTE | 2024-05-30 12:43 | DVHCONRES ---
Date Seen: May 30, 2024 Resident Creating Document: АЛЕКСАНДР BARNES RESIDENT Referring Physician Ruben DARBY Reason for Consultation JEY History of Present Illness Patient is 53-year-old male with past medical history of heart failure reduced ejection fraction, diabetes mellitus, atrial fibrillation, hypertension presented to hospital with a chief complaint of palpitation. As per patient he started having palpitation that brought him to the hospital. During emergency department evaluation, patient is started on amiodarone drip, converted to sinus rhythm. Nephrology consultation was done for evaluation of JEY. Laboratory findings showed trending down gradient from 2.67-1.63, GFR trending up 51. Improving urine output. Denies any other symptoms including abdominal pain, chest pain, shortness of breath, any other symptoms. Past Medical History Hypertension, diabetes mellitus, gout, hyperlipidemia, HFrEF, atrial fibrillation. Past Surgical History Denies Social History Denies smoking or alcohol use. Quit alcohol for five years ago Allergies: Coded Allergies: Ampicillin (Verified Allergy, Unknown, 05/29/24) Home Meds Reported Medications Tirzepatide (Zepbound) 2.5 Mg/0.5 Ml Inj, 0.5 ML SC QWEEKLY for 28 Days, #2 05/30/24 Lisinopril (Lisinopril) 5 Mg Tab, 1 TAB PO DAILY for 90 Days, #90 05/30/24 Apixaban Base (ELIQUIS) 5 Mg Tab, 1 TAB PO BID for 90 Days, #180 05/30/24 Amiodarone Hcl (Amiodarone Hcl) 200 Mg Tab, 1 TAB PO DAILY for 90 Days, #90 05/30/24 Allopurinol (Allopurinol) 100 Mg Tab, 1 TAB PO DAILY for 30 Days, #30 05/30/24 Atorvastatin Calcium (Lipitor) 40 Mg Tab, 1 TAB PO DAILY for 90 Days, #90 05/30/24 Furosemide (Furosemide) 20 Mg Tab, 1 TAB PO DAILY for 30 Days, #30 05/30/24 Metoprolol Succinate (Metoprolol Succinate Er) 50 Mg Tab, 100 MG PO DAILY for 30 Days, #30 05/30/24 Spironolactone (Spironolactone) 25 Mg Tab, 1 TAB PO DAILY for 90 Days, #90 05/30/24 Digoxin (Digoxin) 125 Mcg Tab, 1 TAB PO DAILY for 30 Days, #30 05/30/24 Current Medications Current Medications Medications (Trade) Dose Ordered Sig/Howard Route PRN Reason Start Time Stop Time Status Last Admin Amiodarone HCl 250 ml @ 33.333 mls/ hr [id number] IV 05/29/24 17:45 05/29/24 23:44 DC 05/29/24 19:46 Morphine Sulfate 2 mg Q30M PRN IV FOR CHEST PAIN 05/29/24 22:30 Nitroglycerin (Ntrostat Sublingual) 0.4 mg Q5MINP PRN SL FOR CHEST PAIN 05/29/24 22:30 Diagnostic Test (Pha) (Accu-Chek Comfort Curve T) 1 strip ACHS 05/30/24 07:00 05/30/24 11:50 Insulin Human Regular (InsuLIN R) ACHS SC 05/30/24 07:00 Dextrose 50 ml UD PRN IV Blood Sugar LESS THAN 60 05/29/24 22:30 Heparin Sodium/ Dextrose 250 ml @ 15.24 mls/ hr [id number] IV 05/30/24 01:30 UNV Heparin Sodium/ Dextrose 250 ml @ 10 mls/hr Q24H IV 05/30/24 03:30 05/30/24 11:37 DC 05/30/24 03:31 Furosemide (Lasix Injection) 40 mg DAILY IV 05/31/24 10:00 Heparin Sodium/ Dextrose 250 ml @ 12 mls/hr [id number] IV 05/30/24 11:45 05/30/24 11:52 Review of Systems Eyes: No Pain, No Vision change, No Conjunctivae inflammation, No Eyelid inflammation, No Other, No Redness ENT: No Ear pain, No Ear discharge, No Nose pain, No Nose discharge, No Nose congestion, No Mouth pain, No Mouth swelling, No Throat pain, No Throat swelling, No Other Cardiovascular: No Chest Pain, No Palpitations, No Orthopnea, No Paroxysmal Noc. Dyspnea, No Edema, No Lt Headedness, No Other Respiratory: No Cough, No Dry, No Shortness of breath, No SOB with excertion, No Wheezing, No Hemoptysis, No Pleuritic Pain, No Sputum, No Other Gastrointestinal: No Nausea, No Vomiting, No Abdominal Pain, No Diarrhea, No Constipation, No Melena, No Hematochezia, No Other Genitourinary: No Dysuria, No Frequency, No Incontinence, No Hematuria, No Retention, No Other Musculoskeletal: No other, No neck pain, No shoulder pain, No arm pain, No back pain, No hand pain, No leg pain, No foot pain Skin: No Rash, No Lesions, No Jaundice, No Bruising, No Other Vital Signs Vital Signs Date Time Temp Pulse Resp B/P (MAP) Pulse Ox O2 Delivery O2 Flow Rate FiO2 05/30/24 11:19 117/63 05/30/24 11:00 65 16 93 05/30/24 07:50 Room Air* 0 21 05/30/24 07:50 98.0 98.0 Physical Exam General Appearance: Cooperative. Well developed. Well nourished. NAD Head Exam: Normal inspection Neck Exam: Normal inspection. Non-tender. Normal alignment Pulmonary/Respiratory: Chest non-tender. Clear bilateral breath sounds Cardiovascular/Chest: Regular rate and rhythm. No murmurs. No JVD. Peripheral Pulses: 2+ Radial (R). 2+ Radial (L). 2+ Pedal (R). 2+ Pedal (L) Abdominal Exam: Normal bowel sounds. Soft. Nontender. No hepatospenomegaly. No masses Ankle Exam: Negative ankle edema Lower extremities: Negative lower extremity edema Neuro/Mental Status: A&O x4. Coherent Thoughts/Psych: Normal thought pattern. Appropriate mood and affect. Good judgement and insight Appearance: In no acute distress Skin Exam: Normal inspection. Normal color. Warm. Dry Labs/Diagnostic Data Labs Test 05/30/24 11:57 05/30/24 11:49 05/30/24 09:45 05/30/24 04:30 Range/Units POC Glucose 127 H 70-106 mg/dl Prothrombin Time 13.6 H 9.3-11.8 sec Prothrombin Time INR 1.31 H 0.9-1.15 Activated Partial Thromboplast Time 41.0 H 24.5-34.5 SEC Sodium Level 132 L 136-145 mmol/L Potassium Level 4.1 3.5-5.1 mmol/L Chloride Level 101 98-107 mmol/L Carbon Dioxide Level 22 20-31 mmol/L Anion Gap 9 5-15 Blood Urea Nitrogen 26 H 9-23 mg/dL Creatinine 1.63 H 0.700-1.30 mg/dL Glomerular Filtration Rate Calc 51 >90 mL/min BUN/Creatinine Ratio 16.0 10.0-20.0 Serum Glucose 139 H 74-106 mg/dL Calcium Level 9.5 8.7-10.4 mg/dL Total Bilirubin 0.9 0.2-1.0 mg/dL Direct Bilirubin 0.4 H <0.3 mg/dL Aspartate Amino Transferase (AST) 146 H 13-40 U/L Alanine Aminotransferase (ALT) 295 H 7-40 U/L Alkaline Phosphatase 74 46-116 U/L Troponin I High Sensitivity 1078 *H </=54 ng/L Total Protein 6.8 5.7-8.2 g/dL Albumin 3.9 3.2-4.8 g/dL Test 05/30/24 01:52 05/30/24 00:42 05/29/24 20:45 05/29/24 17:40 Range/Units White Blood Count 11.2 H 4.4-10.8 10^3/uL Red Blood Count 4.80 4.5-5.90 10^6/uL Hemoglobin 14.9 13.5-17.5 g/dL Hematocrit 44.9 # 41.0-53.0 % Mean Corpuscular Volume 93.5 80.0-100.0 fL Mean Corpuscular Hemoglobin 31.1 28.0-32.0 pg Mean Corpuscular Hemoglobin Concent 33.3 32.0-36.0 g/dL Red Cell Distribution Width 15.7 H 11.8-14.3 % Platelet Count 158 140-450 10^3/uL Mean Platelet Volume 11.3 H 6.9-10.8 fL Neutrophils (%) (Auto) 77.5 37.0-80.0 % Lymphocytes (%) (Auto) 15.5 10.0-50.0 % Monocytes (%) (Auto) 6.3 0.0-12.0 % Eosinophils (%) (Auto) 0.3 0.0-7.0 % Basophils (%) (Auto) 0.4 0.0-2.0 % Neutrophils # (Auto) 8.7 H 1.6-8.6 10 ^3/uL Lymphocytes # (Auto) 1.7 0.4-5.4 10 ^3/uL Monocytes # (Auto) 0.7 0-1.3 10 ^3/uL Eosinophils # (Auto) 0 0-0.8 10 ^3/uL Basophils # (Auto) 0 0-0.2 10 ^3/uL Nucleated Red Blood Cells 0.1 % Urine Color Yellow Yellow Urine Clarity Clear Clear Urine pH 5.0 5.0-9.0 Urine Specific [place] 1.024 1.001-1.035 Urine Protein Trace H Negative Urine Ketones Trace Negative Urine Blood Negative Negative /uL Urine Nitrite Negative Negative Urine Bilirubin Negative Negative Urine Urobilinogen Normal Negative mg/dL Urine Leukocyte Esterase Negative Negative /uL Urine RBC 1 0 - 3 /hpf Urine WBC <1 0 - 3 /hpf Urine Squamous Epithelial Cells Few <5 /hpf Urine Bacteria None seen None Seen /hpf Urine Glucose Normal Normal mg/dL Urine Opiates Screen Neg NEGATIVE Urine Fentanyl Screen Neg NEGATIVE Urine Barbiturates Screen Neg NEGATIVE Urine Phencyclidine Screen Neg NEGATIVE Urine Amphetamines Screen Neg NEGATIVE Urine Benzodiazepines Screen Pos NEGATIVE Urine Cocaine Screen Neg NEGATIVE Urine Cannabinoids Screen Neg NEGATIVE Lactic Acid Level 2.3 *H 0.4-2.0 mmol/L Magnesium Level 2.2 1.6-2.6 mg/dL B-Type Natriuretic Peptide 194.63 0-100 pg/mL Assessment JEY likely cardiorenal AFib with RVR Acute on chronic HFrEF NSTEMI type 2 likely due to above Hypertension Gout Hyperkalemia: Resolved Transaminitis Plan/ recommendation - IV Lasix 40 once daily -follow with urine electrolytes urine sodium, urine creatinine, urine protein. -renal ultrasound: Right kidney 11.7, no sonographic evidence of nephrolithiasis or hydronephrosis. -history of heart failure reduced ejection fraction, pending echocardiogram -monitor urine output, serum electrolytes. -avoid nephrotoxic drugs -we will continue to follow closely. Addendum Patient seen and examined, plan discussed with resident. Agree with above, we will follow closely d/w bedside Plan discussed with: Patient, Other (RN) АЛЕКСАНДР BARNES May 30, 2024 12:43 BETTY LAI MD May 30, 2024 18:31
--- NOTE | 2024-05-30 18:28 | DVHINCON2 ---
Date Seen: May 30, [address] Arriaga Reason for Consultation Ventricular tachycardia History of Present Illness 53-year-old gentleman with a previous history of myocardial infarction and coronary artery disease was on his treadmill today. He developed palpitations and shortness of breath. He came to the hospital was found to have sustained ventricular tachycardia. He was cardioverted a. He went into sinus rhythm. His has troponin elevations and cardiac evaluation was requested. He denies any chest pain. He has had a history of diabetes mellitus hypertension and previous myocardial infarction as mentioned. Past Medical History He states he has had a previous myocardial infarction treated in [facility]. History of diabetes and hypertension. He has now been found to have acute kidney injury. He denies any previous stroke or cardiomyopathy. No previous history of ventricular tachycardia. Past Surgical History No past surgical history of significance. Allergies: Coded Allergies: Ampicillin (Verified Allergy, Unknown, 05/29/24) Home Meds Reported Medications Tirzepatide (Zepbound) 2.5 Mg/0.5 Ml Inj, 0.5 ML SC QWEEKLY for 28 Days, #2 05/30/24 Lisinopril (Lisinopril) 5 Mg Tab, 1 TAB PO DAILY for 90 Days, #90 05/30/24 Apixaban Base (ELIQUIS) 5 Mg Tab, 1 TAB PO BID for 90 Days, #180 05/30/24 Amiodarone Hcl (Amiodarone Hcl) 200 Mg Tab, 1 TAB PO DAILY for 90 Days, #90 05/30/24 Allopurinol (Allopurinol) 100 Mg Tab, 1 TAB PO DAILY for 30 Days, #30 05/30/24 Atorvastatin Calcium (Lipitor) 40 Mg Tab, 1 TAB PO DAILY for 90 Days, #90 05/30/24 Furosemide (Furosemide) 20 Mg Tab, 1 TAB PO DAILY for 30 Days, #30 05/30/24 Metoprolol Succinate (Metoprolol Succinate Er) 50 Mg Tab, 100 MG PO DAILY for 30 Days, #30 05/30/24 Spironolactone (Spironolactone) 25 Mg Tab, 1 TAB PO DAILY for 90 Days, #90 05/30/24 Digoxin (Digoxin) 125 Mcg Tab, 1 TAB PO DAILY for 30 Days, #30 05/30/24 Current Medications Current Medications Medications (Trade) Dose Ordered Sig/Howard Route PRN Reason Start Time Stop Time Status Last Admin Morphine Sulfate 2 mg Q30M PRN IV FOR CHEST PAIN 05/29/24 22:30 Nitroglycerin (Ntrostat Sublingual) 0.4 mg Q5MINP PRN SL FOR CHEST PAIN 05/29/24 22:30 Diagnostic Test (Pha) (Accu-Chek Comfort Curve T) 1 strip ACHS 05/30/24 07:00 05/30/24 17:44 Insulin Human Regular (InsuLIN R) ACHS SC 05/30/24 07:00 05/30/24 17:45 Dextrose 50 ml UD PRN IV Blood Sugar LESS THAN 60 05/29/24 22:30 Heparin Sodium/ Dextrose 250 ml @ 15.24 mls/ hr [id number] IV 05/30/24 01:30 UNV Heparin Sodium/ Dextrose 250 ml @ 10 mls/hr Q24H IV 05/30/24 03:30 05/30/24 11:37 DC 05/30/24 03:31 Furosemide (Lasix Injection) 40 mg DAILY IV 05/31/24 10:00 Heparin Sodium/ Dextrose 250 ml @ 12 mls/hr [id number] IV 05/30/24 11:45 05/30/24 11:52 Review of Systems No constitutional symptoms of fevers chills or weight loss. Cardiac and respiratory as noted above. GI musculoskeletal endocrine hematologic oncologic dermatologic as noted above. Endocrinologic as noted above with a history of diabetes mellitus. No hematologic malignancies. Vital Signs Vital Signs Date Time Temp Pulse Resp B/P (MAP) Pulse Ox O2 Delivery O2 Flow Rate FiO2 05/30/24 17:00 71 19 113/62 (79) 92 05/30/24 07:50 Room Air* 0 21 05/30/24 07:50 98.0 98.0 Physical Exam He is lying in bed without distress. HEENT examination is otherwise unremarkable orally well hydrated. Trachea central neck supple thyroid is not valve was no jugular distention no bruits. Lungs reveal good air entry no rales or rhonchi. Heart exam reveals regular S1-S2 soft S4. Abdominal examination is unremarkable. Extremities reveal adequate perfusion without clubbing or cyanosis no edema. Neurologically intact. Integumentary is otherwise within normal limits. His EKG shows sinus rhythm with significant ST segment changes throughout the inferior lateral leads suggesting global ischemia. His initial EKG showed sustained ventricular tachycardia. Labs/Diagnostic Data Labs Test 05/30/24 17:24 05/30/24 14:07 05/30/24 09:45 05/30/24 04:30 Range/Units POC Glucose 134 H 70-106 mg/dl Troponin I High Sensitivity 962 *H </=54 ng/L Prothrombin Time 13.6 H 9.3-11.8 sec Prothrombin Time INR 1.31 H 0.9-1.15 Activated Partial Thromboplast Time 41.0 H 24.5-34.5 SEC Sodium Level 132 L 136-145 mmol/L Potassium Level 4.1 3.5-5.1 mmol/L Chloride Level 101 98-107 mmol/L Carbon Dioxide Level 22 20-31 mmol/L Anion Gap 9 5-15 Blood Urea Nitrogen 26 H 9-23 mg/dL Creatinine 1.63 H 0.700-1.30 mg/dL Glomerular Filtration Rate Calc 51 >90 mL/min BUN/Creatinine Ratio 16.0 10.0-20.0 Serum Glucose 139 H 74-106 mg/dL Calcium Level 9.5 8.7-10.4 mg/dL Total Bilirubin 0.9 0.2-1.0 mg/dL Direct Bilirubin 0.4 H <0.3 mg/dL Aspartate Amino Transferase (AST) 146 H 13-40 U/L Alanine Aminotransferase (ALT) 295 H 7-40 U/L Alkaline Phosphatase 74 46-116 U/L Total Protein 6.8 5.7-8.2 g/dL Albumin 3.9 3.2-4.8 g/dL Test 05/30/24 01:52 05/30/24 00:42 05/29/24 20:45 05/29/24 17:40 Range/Units White Blood Count 11.2 H 4.4-10.8 10^3/uL Red Blood Count 4.80 4.5-5.90 10^6/uL Hemoglobin 14.9 13.5-17.5 g/dL Hematocrit 44.9 # 41.0-53.0 % Mean Corpuscular Volume 93.5 80.0-100.0 fL Mean Corpuscular Hemoglobin 31.1 28.0-32.0 pg Mean Corpuscular Hemoglobin Concent 33.3 32.0-36.0 g/dL Red Cell Distribution Width 15.7 H 11.8-14.3 % Platelet Count 158 140-450 10^3/uL Mean Platelet Volume 11.3 H 6.9-10.8 fL Neutrophils (%) (Auto) 77.5 37.0-80.0 % Lymphocytes (%) (Auto) 15.5 10.0-50.0 % Monocytes (%) (Auto) 6.3 0.0-12.0 % Eosinophils (%) (Auto) 0.3 0.0-7.0 % Basophils (%) (Auto) 0.4 0.0-2.0 % Neutrophils # (Auto) 8.7 H 1.6-8.6 10 ^3/uL Lymphocytes # (Auto) 1.7 0.4-5.4 10 ^3/uL Monocytes # (Auto) 0.7 0-1.3 10 ^3/uL Eosinophils # (Auto) 0 0-0.8 10 ^3/uL Basophils # (Auto) 0 0-0.2 10 ^3/uL Nucleated Red Blood Cells 0.1 % Hemoglobin A1c 6.1 H <5.7 % A1C Urine Color Yellow Yellow Urine Clarity Clear Clear Urine pH 5.0 5.0-9.0 Urine Specific [place] 1.024 1.001-1.035 Urine Protein Trace H Negative Urine Ketones Trace Negative Urine Blood Negative Negative /uL Urine Nitrite Negative Negative Urine Bilirubin Negative Negative Urine Urobilinogen Normal Negative mg/dL Urine Leukocyte Esterase Negative Negative /uL Urine RBC 1 0 - 3 /hpf Urine WBC <1 0 - 3 /hpf Urine Squamous Epithelial Cells Few <5 /hpf Urine Bacteria None seen None Seen /hpf Urine Glucose Normal Normal mg/dL Urine Opiates Screen Neg NEGATIVE Urine Fentanyl Screen Neg NEGATIVE Urine Barbiturates Screen Neg NEGATIVE Urine Phencyclidine Screen Neg NEGATIVE Urine Amphetamines Screen Neg NEGATIVE Urine Benzodiazepines Screen Pos NEGATIVE Urine Cocaine Screen Neg NEGATIVE Urine Cannabinoids Screen Neg NEGATIVE Lactic Acid Level 2.3 *H 0.4-2.0 mmol/L Magnesium Level 2.2 1.6-2.6 mg/dL B-Type Natriuretic Peptide 194.63 0-100 pg/mL Assessment Chronic kidney disease. Sustained ventricular tachycardia probably secondary to scarring and or recurrent ischemia. 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 Plan/Recommendation Patient's kidneys are better he will require cardiac catheterization to rule out ischemia. He will most likely require revascularization if need be. He may also require ICD. Correction of the electrolytes and risk factor modification to continue. We will schedule for an angiographic evaluation tomorrow if his creatinine is better. Plan discussed with: Patient, Spouse Date of Service: May 30, 2024 Billing Provider: DONELL OROURKE Sr., MD Cardiology Common Codes: 83501-TTBSAPD INP/OBS CARE (High) DONELL OROURKE Sr., MD May 30, 2024 18:27
--- NOTE | 2024-05-30 18:31 | ECG ---
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
[2024-05-30 19:12] LABS: INR 1.32 (0.9-1.15); Partial Thromboplastin Time 47.6 SEC (24.5-34.5); Prothrombin Time 13.7 sec (9.3-11.8)
[2024-05-30 19:18] LABS: Alkaline Phosphatase 77 U/L (46-116); Anion Gap 7 (5-15); BUN/Creatinine Ratio 12.3 (10.0-20.0); Bilirubin, Total 1.1 mg/dL (0.2-1.0); Blood Urea Nitrogen 18 mg/dL (9-23); Calcium 9.6 mg/dL (8.7-10.4); Carbon Dioxide 25 mmol/L (20-31); Chloride 101 mmol/L (98-107); Glucose 106 mg/dL (74-106); Potassium 4.2 mmol/L (3.5-5.1); Total Protein 7.2 g/dL (5.7-8.2)
[2024-05-30 19:19] LABS: Aspartate Aminotransferase 198 U/L (13-40); Sodium 133 mmol/L (136-145)
[2024-05-30 19:20] LABS: Alanine Aminotransferase 292 U/L (7-40)
[2024-05-30 19:28] LABS: Protein, Urine 30.5 mg/dL (1-14)
[2024-05-30 19:43] LABS: Creatinine, Urine 230.6 mg/dL (30.0-125.0)
[2024-05-30 23:20] VITALS: BP 117/62; PULSE 77; RESP 18; TEMP 97.7; O2SAT 95
[2024-05-31] VITALS (12 sets, daily range): BP systolic 101–133; BP diastolic 51–77; PULSE 54–114; RESP 12–18; TEMP 97.7–98.6; O2SAT 73–98
[2024-05-31] MEDS ORDERED: METF-370 PO (01:20)
[2024-05-31] MEDS ORDERED: BUDE1AER16 IN (01:22)
[2024-05-31] MEDS ORDERED: IPRA0.00 IN (01:25)
[2024-05-31 03:08] LABS: INR 1.3 (0.9-1.15); Partial Thromboplastin Time 33.6 SEC (24.5-34.5); Prothrombin Time 13.5 sec (9.3-11.8)
[2024-05-31] MEDS: HEPARIN DRIP/D5W 100UNITS/ML 250 ML IV SCH ×3 (03:58→16:30)
[2024-05-31 08:01] LABS: Basophils # (auto) 0.1 10 ^3/uL (0-0.2); Basophils % (auto) 0.8 % (0.0-2.0); Eosinophils # (auto) 0.1 10 ^3/uL (0-0.8); Eosinophils % (auto) 0.9 % (0.0-7.0); Hematocrit 48.6 % (41.0-53.0); Hemoglobin 16.2 g/dL (13.5-17.5); Lymphocytes # (auto) 2.2 10 ^3/uL (0.4-5.4); Lymphocytes % (auto) 24.9 % (10.0-50.0); Mean Corpuscular Hemoglobin 31.4 pg (28.0-32.0); Mean Corpuscular Hgb Conc. 33.2 g/dL (32.0-36.0); Mean Corpuscular Volume 94.5 fL (80.0-100.0); Monocytes # (auto) 1.2 10 ^3/uL (0-1.3); Monocytes % (auto) 13.8 % (0.0-12.0); Neutrophils # (auto) 5.2 10 ^3/uL (1.6-8.6); Neutrophils % (auto) 59.6 % (37.0-80.0); Nucleated Red Blood Cells % 0.2 %; Platelet Count (auto) 131 10^3/uL (140-450); Red Blood Cells 5.15 10^6/uL (4.5-5.90); Red Cell Distribution Width 15.5 % (11.8-14.3); White Blood Cell 8.7 10^3/uL (4.4-10.8)
[2024-05-31 08:23] LABS: Albumin 4.3 g/dL (3.2-4.8); Alkaline Phosphatase 82 U/L (46-116); Anion Gap 6 (5-15); BUN/Creatinine Ratio 14.5 (10.0-20.0); Bilirubin, Total 1.2 mg/dL (0.2-1.0); Blood Urea Nitrogen 19 mg/dL (9-23); Calcium 9.7 mg/dL (8.7-10.4); Carbon Dioxide 27 mmol/L (20-31); Chloride 100 mmol/L (98-107); Glucose 100 mg/dL (74-106); Potassium 3.9 mmol/L (3.5-5.1); Total Protein 7.6 g/dL (5.7-8.2)
[2024-05-31 08:24] LABS: Alanine Aminotransferase 287 U/L (7-40); Aspartate Aminotransferase 166 U/L (13-40); Sodium 133 mmol/L (136-145)
[2024-05-31 10:11] LABS: Hepatitis B Core Total AB Negative (Negative)
[2024-05-31] MEDS: FUROSEMIDE 40 MG/4 ML VIAL IV SCH (10:30)
--- NOTE | 2024-05-31 10:56 | DVHSR ---
APPROVED REPORT EXAM: Two-dimensional and M-mode echocardiogram with Doppler and color Doppler. Blood Pressure: 124/62 mmHg INDICATION CHF RISK FACTORS Obesity: Height: 6' 3", Weight: 279 DIMENSIONS LVDd7.0 (3.8-5.7cm)LA (2D)5.4 (1.9-4.0cm)Aortic Root3.3 (2.0-3.7cm) LVDs6.6 (2.5-4.0cm)LA (MM) (1.9-4.0cm)Aortic Cusp Exc2.4 (1.5-2.0cm) EF (%) 15.0 (55-70%)Rt. Atrium4.7 (1.9-4.0cm)Asc. Aorta cm IVSd0.9 (0.7-1.1cm)RV (D) (1.8-2.4cm) PWd1.0 (0.7-1.1cm) Mitral Valve MitralMitral Stenosis E wave0.60m/sMV Mean GR.mmHg A wave0.70m/sMV Peak GR.mmHg E/A ratio0.92D MVAcm2 Aortic Valve Aortic ValveAortic Stenosis V10.60m/Pauly Mean GR.5mmHg V21.50m/Pauly Peak GR.9mmHg LVOT Diameter2.7 (1.8-2.4cm)Doppler AVA2.29cm2 Pulmonic Valve V20.60m/s Conclusion Technically good study sinus rhythm. Biatrial enlargement. Left ventricular enlargement. Concentric LVH. Valves are normal. EF is markedly diminished. EF of approximately 20% with severe global hypokinesis. Moderate tricuspid regurgitation. No pericardial effusion masses or vegetations discernible.
[2024-05-31 12:00] LABS: INR 1.27 (0.9-1.15); Partial Thromboplastin Time 59.8 SEC (24.5-34.5); Prothrombin Time 13.2 sec (9.3-11.8)
[2024-05-31 12:00] LABS: Hepatitis A Total Antibody Positive (Negative); Hepatitis B Surface Antibody Positive (Negative); Hepatitis B Surface Antigen Negative (Negative); Hepatitis C Antibody Negative (Negative)
[2024-05-31] MEDS: AMIODARONE HCL 200 MG TAB PO ONE (13:36)
[2024-05-31] MEDS: IODIXANOL 320MG/ML 100ML BTL IV ONE (15:28)
[2024-05-31] MEDS: HEPARIN IN NS 1000Units/500mL 1,500 ML ONE (15:28)
--- NOTE | 2024-05-31 15:38 | DVHPN2 ---
Progress Note Date Seen: May 31, 2024 Has the PT tested + for MRSA If YES, has PT been informed?: No Medical Necessity Reason Pt with a Central, PICC or Fol: No Subjective Patient reports: No new complaints, Feels better Review of Systems: HEENT:Normal, CVS:Normal, CVS:Abnormal, RESPIRATORY:Normal, GI:Normal, :Normal, MSK:Normal, NEURO:Normal Objective vital signs Vital Sign Date Time Temp Pulse Resp B/P (MAP) Pulse Ox O2 Delivery O2 Flow Rate FiO2 05/31/24 13:00 97.8 71 18 133/70 (91) 98 97.8 05/30/24 23:20 Room Air* 0 21 Total Intake and Output 05/30/24 05/30/24 05/31/24 15:00 23:00 07:00 Intake Total 250 ml Balance 250 ml medications Current Medications Medications Dose Ordered Sig/Howard Route Start Time Stop Time Status Last Admin Dose Admin Morphine Sulfate 2 mg Q30M PRN IV 05/29/24 22:30 Nitroglycerin 0.4 mg Q5MINP PRN SL 05/29/24 22:30 Diagnostic Test (Pha) 1 strip ACHS 05/30/24 07:00 05/31/24 11:50 1 STRIP Insulin Human Regular ACHS SC 05/30/24 07:00 05/30/24 22:09 3 UNITS Dextrose 50 ml UD PRN IV 05/29/24 22:30 Heparin Sodium/ Dextrose 250 ml @ 15.24 mls/ hr [id number] IV 05/30/24 01:30 UNV Furosemide 40 mg DAILY IV 05/31/24 10:00 05/31/24 10:30 40 MG Heparin Sodium/ Dextrose 250 ml @ 16 mls/hr [id number] IV 05/31/24 08:45 05/31/24 08:49 16 MLS/HR Amiodarone HCl 200 mg Q12HR PO 05/31/24 22:00 Examination: GENERAL:Normal, HEENT:Normal, NECK:Normal, LUNGS:Normal, CVS:Normal, ABDOMEN:Normal, MSK:Normal, SKIN:Normal, NEURO:Normal, :Normal laboratory and microbiology Laboratory Tests 05/31/24 07:40 Test 05/31/24 07:40 Range/Units Serum Glucose 100 74-106 mg/dL Problem List/Assessment/Plan Problem List/Assessment/Plan JEY likely cardiorenal Ventricular tachycardia History of AFib Acute on chronic HFrEF NSTEMI type 2 likely due to above Hypertension Gout Hyperkalemia: Resolved Transaminitis Recommendations Plan for cardiac cath noted Monitor creatinine On Lasix Plan discussed with: Patient, Spouse BETTY LAI MD May 31, 2024 15:38
[2024-05-31 15:51] LABS: INR 1.26 (0.9-1.15); Prothrombin Time 13.1 sec (9.3-11.8)
[2024-05-31 16:03] LABS: Partial Thromboplastin Time 83.6 SEC (24.5-34.5)
[2024-05-31] MEDS: HEPARIN SODIUM (PORCINE) 5000 UNITS/ML 1ML VIAL ONE (16:03)
[2024-05-31] MEDS: ANGIOMAX 250 MG VIAL IV ONE (16:03)
[2024-05-31] MEDS: SODIUM CHL 0.9% 0 ML ONE (16:04)
[2024-05-31] MEDS: LIDOCAINE 2%HCL (LOCAL ANESTH.) INJ 20ML MDV ONE (16:04)
[2024-05-31] MEDS: fentaNYL CITRATE 100 MCG/2 ML VL ONE (16:04)
[2024-05-31] MEDS: MIDAZOLAM HCL 2MG/2ML 2ml VIAL (1mg/ml) ONE (16:04)
[2024-05-31] MEDS: VERAPAMIL 2.5MG/ML INJ 2ML VIAL IV ONE (16:08)
--- NOTE | 2024-05-31 16:37 | DVHPN2 ---
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 Reviewed: Care Plan Changes from previous H/P or p: No Changes Objective Vitals Vital Signs Date Time Temp Pulse Resp B/P (MAP) Pulse Ox O2 Delivery O2 Flow Rate FiO2 05/31/24 13:00 97.8 71 18 133/70 (91) 98 97.8 05/30/24 23:20 Room Air* 0 21 Intake/Output Intake and Output 05/31/24 07:00 Intake Total 250 ml Balance 250 ml Intake IV Total 250 ml # Voids 2 Medications Current Medications Medications Dose Ordered Sig/Howard Route Start Time Stop Time Status Last Admin Dose Admin Morphine Sulfate 2 mg Q30M PRN IV 05/29/24 22:30 Nitroglycerin 0.4 mg Q5MINP PRN SL 05/29/24 22:30 Diagnostic Test (Pha) 1 strip ACHS 05/30/24 07:00 05/31/24 11:50 1 STRIP Insulin Human Regular ACHS SC 05/30/24 07:00 05/30/24 22:09 3 UNITS Dextrose 50 ml UD PRN IV 05/29/24 22:30 Heparin Sodium/ Dextrose 250 ml @ 15.24 mls/ hr [id number] IV 05/30/24 01:30 UNV Furosemide 40 mg DAILY IV 05/31/24 10:00 05/31/24 10:30 40 MG Amiodarone HCl 200 mg Q12HR PO 05/31/24 22:00 Heparin Sodium/ Dextrose 250 ml @ 14 mls/hr [id number] IV 05/31/24 16:30 Laboratory Results Laboratory Tests 05/31/24 07:40 Chemistry Test 05/30/24 18:27 05/31/24 07:40 Albumin 4.0 g/dL (3.2-4.8) 4.3 g/dL (3.2-4.8) Calcium Level 9.6 mg/dL (8.7-10.4) 9.7 mg/dL (8.7-10.4) Total Protein 7.2 g/dL (5.7-8.2) 7.6 g/dL (5.7-8.2) Coagulation Test 05/30/24 18:27 05/31/24 02:35 05/31/24 10:40 05/31/24 15:02 Prothrombin Time 13.7 sec (9.3-11.8) H 13.5 sec (9.3-11.8) H 13.2 sec (9.3-11.8) H 13.1 sec (9.3-11.8) H Prothrombin Time INR 1.32 (0.9-1.15) H 1.30 (0.9-1.15) H 1.27 (0.9-1.15) H 1.26 (0.9-1.15) H Activated Partial Thromboplast Time 47.6 SEC (24.5-34.5) H 33.6 SEC (24.5-34.5) 59.8 SEC (24.5-34.5) H 83.6 SEC (24.5-34.5) *H Cardiac Markers Test 05/31/24 07:40 B-Type Natriuretic Peptide 46.34 pg/mL (0-100) LFT Test 05/30/24 18:27 05/31/24 07:40 Alanine Aminotransferase (ALT) 292 U/L (7-40) H 287 U/L (7-40) H Alkaline Phosphatase 77 U/L (46-116) 82 U/L (46-116) Aspartate Amino Transferase (AST) 198 U/L (13-40) H 166 U/L (13-40) H Total Bilirubin 1.1 mg/dL (0.2-1.0) H 1.2 mg/dL (0.2-1.0) H Urinalysis Test 05/30/24 00:42 Urine Color Yellow (Yellow) Urine Clarity Clear (Clear) Urine pH 5.0 (5.0-9.0) Urine Specific [place] 1.024 (1.001-1.035) Urine Protein Trace (Negative) H Urine Ketones Trace (Negative) Urine Blood Negative /uL (Negative) Urine Nitrite Negative (Negative) Urine Bilirubin Negative (Negative) Urine Urobilinogen Normal mg/dL (Negative) Urine Leukocyte Esterase Negative /uL (Negative) Urine RBC 1 /hpf (0 - 3) Urine WBC <1 /hpf (0 - 3) Urine Squamous Epithelial Cells Few /hpf (<5) Urine Bacteria None seen /hpf (None Seen) Urine Creatinine 230.60 mg/dL (30.0-125.0) H Urine Sodium 36 mmol/L (40-220) L Urine Glucose Normal mg/dL (Normal) Urine Total Protein 30.5 mg/dL (1-14) H Assessment/Plan Assessment/Plan 53 yo male with known history of chronic AFib, diabetes mellitus type 2, hypertension, congestive heart failure initially presented to the hospital with a palpitation found to have 1. AFib with RVR converted into sinus rhythm after amiodarone. 2. Ventricular tachyarrhythmia status post cardioversion in ER 3. Elevated troponin suspect NSTEMI 4. Acute kidney injury suspected secondary to vasomotor nephropathy 5. Transaminitis 6. 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 Plan discussed with: Other Date of Service: May 31, 2024 Billing Provider: RENEE YUAN MD Common Visit Codes: NOT BILLABLE RENEE YUAN MD May 31, 2024 16:37
--- NOTE | 2024-05-31 17:09 | DVHOP2 ---
Operative Report -Cardiology Report Details Date: 05/31/24 Preop Diagnosis: CARDIOMYOPATHY, VENTRICULAR TACHYCARDIA. NON ST-ELEVATION VA Postop Diagnosis: CARDIOMYOPATHY Surgeon: Donell Orourke MD Anesthesiologist: CONSCIOUS SEDATION Anesthesia: Mac, Local Consent: The patient was informed of the risks and benefits of the procedure. These include but are not limited to complications of anesthesia, postoperative infection, incomplete relief of symptoms, recurrence of symptoms, damage to blood vessels, nerves and tendons, deep venous thrombosis, pulmonary embolism and possible need for repeat surgery in the future. Complications: NO COMPLICATIONS Estimated Blood Loss: 2 CC Findings: NORMAL CORONARIES, CARDIOMYOPATHY Indications for Surgery: CARDIOMYOPATHY. CONGESTIVE HEART FAILURE Name of Procedure Performed LEFT HEART CATHETERIZATION BILATERAL CINE CORONARY ANGIOGRAPHY LEFT VENTRICULOGRAPHY Procedure Details Procedure Details: PRIOR LOCAL ANESTHESIA WITH 2% LIDOCAINE TO THE RIGHT WRIST AND FULL INFORMED CONSENT OBTAINED PATIENT WAS PREPPED AND DRAPED IN USUAL FASHION FOLLOWED BY PLACEMENT OF A SIX MALAY SHEATH OF THE RADIAL ARTERY. A [employer] CATHETER WAS USED FOR CANNULATION OF BOTH RIGHT AND LEFT CORONARY OSTIUM AND VENTRICULOGRAPHY. NO COMPLICATIONS. HEMODYNAMICS AORTIC BLOOD PRESSURE WAS 110/70 END-DIASTOLIC PRESSURE WAS FIVE. THERE WAS NO GRADIENT ACROSS AORTIC VALVE ON PULLBACK CORONARY ANATOMY RCA IS A LARGE VESSEL MILD SPASM THAT WAS CATHETER INDUCED WAS NOTED. OTHERWISE NORMAL IN ITS PROXIMAL MID AND DISTAL SEGMENTS. THE PDA AND POSTEROLATERAL BRANCHES ARE NORMAL. LEFT MAIN IS LARGE AND NORMAL. LEFT ANTERIOR DESCENDING IS LARGE WITH TWO DIAGONALS FREE OF SIGNIFICANT DISEASE. CIRCUMFLEX IS LARGE WITH TWO MARGINALS FREE OF SIGNIFICANT DISEASE VENTRICULOGRAPHY IN THE SAUL PROJECTION PERFORMED. SHOWING SEVERE GLOBAL HYPOKINESIS ESPECIALLY OF THE ANTERIOR AND INFERIOR [place]. EF APPROXIMATELY 15- 20%. ENLARGED LEFT VENTRICLE. IMPRESSION: NORMAL LEFT VENTRICULAR END-DIASTOLIC PRESSURE RISE. DECREASED LEFT VENTRICULAR EJECTION FRACTION. WE NO SIGNIFICANT CORONARY ARTERY DISEASE. RECOMMENDATIONS: AFTERLOAD REDUCTION. LIFE VEST. WE WILL SWAB MODIFICATION TO CONTINUE. Condition Fair [facility] Clinical Frailty Scale [facility] Clinical Frailty Scale: Managing Well Stress Test Stress Test Performed: No Disposition Still a Patient DONELL OROURKE Sr., MD May 31, 2024 17:08
--- NOTE | 2024-05-31 17:12 | DVHPN2 ---
Date of Service: May 31, 2024 Billing Provider: DONELL OROURKE Sr., MD Cardiology Common Codes: [id number] INP/OBS CARE (High) Cardiology Procedure Codes: [id number] VESSEL W/I VASC FAM, [id number] ADD CORONARY BRANCH, [id number] HEART CATH W/INTRA INJ DONELL OROURKE Sr., MD May 31, 2024 17:12
--- NOTE | 2024-05-31 19:14 | DVHPN2 ---
Progress Note - Dictate Date Seen: May 31, 2024 Has the PT tested + for MRSA If YES, has PT been informed?: No Medical Necessity Reason Pt with a Central, PICC or Fol: No Subjective Patient had cardiac catheterization today He has normal coronaries Patient has cardiomyopathy with CHF Liver enzymes trending down and stable vital signs Vital Sign Date Time Temp Pulse Resp B/P (MAP) Pulse Ox O2 Delivery O2 Flow Rate FiO2 05/31/24 17:55 87 15 108/70 (83) 97 05/31/24 13:00 97.8 97.8 05/31/24 08:00 Room Air* 0 21 Total Intake and Output 05/30/24 05/30/24 05/31/24 15:00 23:00 07:00 Intake Total 250 ml Balance 250 ml medications Current Medications Medications Dose Ordered Sig/Howard Route Start Time Stop Time Status Last Admin Dose Admin Morphine Sulfate 2 mg Q30M PRN IV 05/29/24 22:30 Nitroglycerin 0.4 mg Q5MINP PRN SL 05/29/24 22:30 Diagnostic Test (Pha) 1 strip ACHS 05/30/24 07:00 05/31/24 11:50 1 STRIP Insulin Human Regular ACHS SC 05/30/24 07:00 05/30/24 22:09 3 UNITS Dextrose 50 ml UD PRN IV 05/29/24 22:30 Heparin Sodium/ Dextrose 250 ml @ 15.24 mls/ hr [id number] IV 05/30/24 01:30 UNV Furosemide 40 mg DAILY IV 05/31/24 10:00 05/31/24 10:30 40 MG Amiodarone HCl 200 mg Q12HR PO 05/31/24 22:00 Heparin Sodium/ Dextrose 250 ml @ 14 mls/hr [id number] IV 05/31/24 16:30 05/31/24 22:00 05/31/24 16:30 14 MLS/HR Apixaban 5 mg BID PO 05/31/24 22:00 Sacubitril/ Valsartan 1 tab BID PO 05/31/24 22:00 objective General: NAD, AAOX3 Chest: lung jo clear to auscultation Heart: RRR, no murmur Abdomen: non-distended, no tenderness to palpation, +BS laboratory and microbiology Laboratory Tests 05/31/24 07:40 Test 05/31/24 07:40 Range/Units Serum Glucose 100 74-106 mg/dL Problems(with codes): (1) Elevated liver enzymes (2) Ventricular tachyarrhythmia (3) Elevated troponin (4) JEY (acute kidney injury) Prognosis Assessment plan Continue to monitor the patient Trend the liver enzymes Hepatitis profile negative Right upper quadrant ultrasound essentially shows normal liver with nonvisualization of the left lobe Plan discussed with: Other (Deanna Valderrama) PARVEEN WOODWARD MD May 31, 2024 19:14
[2024-05-31] MEDS: SACUBITRIL-VALSARTAN 24mg/26mg TAB PO SCH (22:00)
[2024-05-31] MEDS: AMIODARONE HCL 200 MG TAB PO SCH (22:00)
[2024-05-31] MEDS: APIXABAN 5 MG TAB PO SCH (22:19)
[2024-06-01] VITALS (9 sets, daily range): BP systolic 101–153; BP diastolic 52–90; PULSE 54–105; RESP 14–20; TEMP 97.2–97.9; O2SAT 95–99
[2024-06-01 01:29] LABS: Basophils # (auto) 0.1 10 ^3/uL (0-0.2); Basophils % (auto) 0.8 % (0.0-2.0); Eosinophils # (auto) 0.1 10 ^3/uL (0-0.8); Hemoglobin 14.7 g/dL (13.5-17.5); Lymphocytes # (auto) 2.1 10 ^3/uL (0.4-5.4); Lymphocytes % (auto) 28.8 % (10.0-50.0); Mean Corpuscular Hemoglobin 31.2 pg (28.0-32.0); Mean Corpuscular Hgb Conc. 33.5 g/dL (32.0-36.0); Mean Corpuscular Volume 93.1 fL (80.0-100.0); Monocytes # (auto) 1.1 10 ^3/uL (0-1.3); Monocytes % (auto) 15.1 % (0.0-12.0); Neutrophils # (auto) 3.9 10 ^3/uL (1.6-8.6); Neutrophils % (auto) 54.3 % (37.0-80.0); Nucleated Red Blood Cells % 0.1 %; Platelet Count (auto) 126 10^3/uL (140-450); Red Blood Cells 4.72 10^6/uL (4.5-5.90); Red Cell Distribution Width 15.9 % (11.8-14.3); White Blood Cell 7.1 10^3/uL (4.4-10.8)
[2024-06-01 01:36] LABS: Chloride 102 mmol/L (98-107); Sodium 138 mmol/L (136-145)
[2024-06-01 01:37] LABS: Anion Gap 8 (5-15); Calcium 9.3 mg/dL (8.7-10.4); Carbon Dioxide 28 mmol/L (20-31)
[2024-06-01 01:42] LABS: BUN/Creatinine Ratio 15.6 (10.0-20.0); Blood Urea Nitrogen 17 mg/dL (9-23)
[2024-06-01 01:43] LABS: INR 1.25 (0.9-1.15); Partial Thromboplastin Time 28.2 SEC (24.5-34.5)
[2024-06-01 01:45] LABS: Glucose 114 mg/dL (74-106)
--- NOTE | 2024-06-01 09:02 | ECG ---
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
--- NOTE | 2024-06-01 09:22 | DVHPN2 ---
Progress Note - Dictate Date Seen: Jun 01, 2024 Has the PT tested + for MRSA If YES, has PT been informed?: No Medical Necessity Reason Pt with a Central, PICC or Fol: No Subjective went for cath yesterday vital signs Vital Sign Date Time Temp Pulse Resp B/P (MAP) Pulse Ox O2 Delivery O2 Flow Rate FiO2 06/01/24 05:02 97.9 74 14 103/52 (69) 99 97.9 05/31/24 20:00 Room Air* 0 21 Total Intake and Output 05/31/24 05/31/24 06/01/24 15:00 23:00 07:00 Intake Total 25.2 ml 1533.9 ml 800 ml Output Total 1000 ml Balance 25.2 ml 1533.9 ml -200 ml medications Current Medications Medications Dose Ordered Sig/Howard Route Start Time Stop Time Status Last Admin Dose Admin Morphine Sulfate 2 mg Q30M PRN IV 05/29/24 22:30 Nitroglycerin 0.4 mg Q5MINP PRN SL 05/29/24 22:30 Diagnostic Test (Pha) 1 strip ACHS 05/30/24 07:00 05/31/24 11:50 1 STRIP Insulin Human Regular ACHS SC 05/30/24 07:00 05/30/24 22:09 3 UNITS Dextrose 50 ml UD PRN IV 05/29/24 22:30 Heparin Sodium/ Dextrose 250 ml @ 15.24 mls/ hr [id number] IV 05/30/24 01:30 UNV Furosemide 40 mg DAILY IV 05/31/24 10:00 05/31/24 10:30 40 MG Amiodarone HCl 200 mg Q12HR PO 05/31/24 22:00 Apixaban 5 mg BID PO 05/31/24 22:00 05/31/24 22:20 5 MG Sacubitril/ Valsartan 1 tab BID PO 05/31/24 22:00 objective GENERAL:Normal, HEENT:Normal, NECK:Normal, LUNGS:Normal, CVS:Normal, ABDOMEN:Normal, MSK:Normal, SKIN:Normal, NEURO:Normal, :Normal laboratory and microbiology Laboratory Tests 06/01/24 01:16 Test 06/01/24 01:16 Range/Units Serum Glucose 114 H 74-106 mg/dL Assessment/Plan JEY likely cardiorenal Ventricular tachycardia History of AFib Acute on chronic HFrEF EF 15% NSTEMI type 2 likely due to above Hypertension Gout Hyperkalemia: Resolved Transaminitis s/p cath no stents placed EF 15% cards started entresto- monitor BP avoid hypotension lasix strict I/O Jey has resolved will need to monitor closely post cath Plan discussed with: Patient JONATHAN YADAV MD Jun 01, 2024 09:22
--- NOTE | 2024-06-01 15:43 | DVHDS2 ---
Discharge Summary Date of Admission May 29, 2024 at 22:30 Date of Discharge: Jun 01, 2024 Labs/Diagnostic Data: Laboratory Results Test 06/01/24 11:40 06/01/24 01:16 05/31/24 07:40 05/30/24 23:20 POC Glucose 94 mg/dl (70-106) White Blood Count 7.1 10^3/uL (4.4-10.8) Red Blood Count 4.72 10^6/uL (4.5-5.90) Hemoglobin 14.7 g/dL (13.5-17.5) Hematocrit 44.0 % (41.0-53.0) Mean Corpuscular Volume 93.1 fL (80.0-100.0) Mean Corpuscular Hemoglobin 31.2 pg (28.0-32.0) Mean Corpuscular Hemoglobin Concent 33.5 g/dL (32.0-36.0) Red Cell Distribution Width 15.9 % (11.8-14.3) Platelet Count 126 10^3/uL (140-450) Mean Platelet Volume 11.4 fL (6.9-10.8) Neutrophils (%) (Auto) 54.3 % (37.0-80.0) Lymphocytes (%) (Auto) 28.8 % (10.0-50.0) Monocytes (%) (Auto) 15.1 % (0.0-12.0) Eosinophils (%) (Auto) 1.0 % (0.0-7.0) Basophils (%) (Auto) 0.8 % (0.0-2.0) Neutrophils # (Auto) 3.9 10 ^3/uL (1.6-8.6) Lymphocytes # (Auto) 2.1 10 ^3/uL (0.4-5.4) Monocytes # (Auto) 1.1 10 ^3/uL (0-1.3) Eosinophils # (Auto) 0.1 10 ^3/uL (0-0.8) Basophils # (Auto) 0.1 10 ^3/uL (0-0.2) Nucleated Red Blood Cells 0.1 % Prothrombin Time 13.0 sec (9.3-11.8) Prothrombin Time INR 1.25 (0.9-1.15) Activated Partial Thromboplast Time 28.2 SEC (24.5-34.5) Sodium Level 138 mmol/L (136-145) Potassium Level 4.0 mmol/L (3.5-5.1) Chloride Level 102 mmol/L (98-107) Carbon Dioxide Level 28 mmol/L (20-31) Anion Gap 8 (5-15) Blood Urea Nitrogen 17 mg/dL (9-23) Creatinine 1.09 mg/dL (0.700-1.30) Glomerular Filtration Rate Calc 82 mL/min (>90) BUN/Creatinine Ratio 15.6 (10.0-20.0) Serum Glucose 114 mg/dL (74-106) Calcium Level 9.3 mg/dL (8.7-10.4) Total Bilirubin 1.2 mg/dL (0.2-1.0) Aspartate Amino Transferase (AST) 166 U/L (13-40) Alanine Aminotransferase (ALT) 287 U/L (7-40) Alkaline Phosphatase 82 U/L (46-116) B-Type Natriuretic Peptide 46.34 pg/mL (0-100) Total Protein 7.6 g/dL (5.7-8.2) Albumin 4.3 g/dL (3.2-4.8) Troponin I High Sensitivity 1140 ng/L (</=54) Test 05/30/24 14:07 05/30/24 04:30 05/30/24 01:52 05/30/24 00:42 Uric Acid 7.0 mg/dL (3.7-9.2) Hepatitis A Antibody Total Positive (Negative) Hepatitis B Surface Antigen Negative (Negative) Hepatitis B Surface Antibody Positive (Negative) Hepatitis B Core Total Antibody Negative (Negative) Hepatitis C Antibody Negative (Negative) Direct Bilirubin 0.4 mg/dL (<0.3) Hemoglobin A1c 6.1 % A1C (<5.7) Urine Color Yellow (Yellow) Urine Clarity Clear (Clear) Urine pH 5.0 (5.0-9.0) Urine Specific [place] 1.024 (1.001-1.035) Urine Protein Trace (Negative) Urine Ketones Trace (Negative) Urine Blood Negative /uL (Negative) Urine Nitrite Negative (Negative) Urine Bilirubin Negative (Negative) Urine Urobilinogen Normal mg/dL (Negative) Urine Leukocyte Esterase Negative /uL (Negative) Urine RBC 1 /hpf (0 - 3) Urine WBC <1 /hpf (0 - 3) Urine Squamous Epithelial Cells Few /hpf (<5) Urine Bacteria None seen /hpf (None Seen) Urine Creatinine 230.60 mg/dL (30.0-125.0) Urine Sodium 36 mmol/L (40-220) Urine Glucose Normal mg/dL (Normal) Urine Total Protein 30.5 mg/dL (1-14) Urine Opiates Screen Neg (NEGATIVE) Urine Fentanyl Screen Neg (NEGATIVE) Urine Barbiturates Screen Neg (NEGATIVE) Urine Phencyclidine Screen Neg (NEGATIVE) Urine Amphetamines Screen Neg (NEGATIVE) Urine Benzodiazepines Screen Pos (NEGATIVE) Urine Cocaine Screen Neg (NEGATIVE) Urine Cannabinoids Screen Neg (NEGATIVE) Test 05/29/24 20:45 05/29/24 17:40 Lactic Acid Level 2.3 mmol/L (0.4-2.0) Magnesium Level 2.2 mg/dL (1.6-2.6) Other Laboratory Tests 06/01/24 01:16 Brief Hx & Hospital Course: 53 yo male with known history of chronic AFib, diabetes mellitus type 2, hypertension, congestive heart failure initially presented to the hospital with a palpitation found to have ventricular tachyarrhythmia status post cardioversion in the ER. Patient went into AFib with RVR requiring IV amiodarone drip which was switched to p.o. amiodarone. Cardiology was consulted for NSTEMI, patient underwent heart catheterization which shows evidence of cardiomyopathy but normal coronary arteries. Patient's ejection fraction is 15- 20% and requiring LifeVest. LifeVest has been ordered once LifeVest is arranged patient can be discharged. LFTs are trending down which was thought to be secondary to congestive cardiomyopathy. Acute kidney injury and hyperkalemia has been resolved as well. 1. AFib with RVR converted into sinus rhythm after amiodarone. 2. Ventricular tachyarrhythmia status post cardioversion in ER 3. Elevated troponin suspect NSTEMI 4. Acute kidney injury suspected secondary to vasomotor nephropathy 5. Transaminitis 6. Hyperkalemia Condition at Discharge: Stable Final Diagnosis/Problems List 1. AFib with RVR converted into sinus rhythm after amiodarone. 2. Ventricular tachyarrhythmia status post cardioversion in ER 3. Elevated troponin suspect NSTEMI status post left heart catheterization shows normal coronary arteries 4. Acute kidney injury suspected secondary to vasomotor nephropathy 5. Transaminitis 6. Hyperkalemia Discharge Disposition: Home SNF Discharge Will this Physician continue t: No Discharge Instruct/Medications Diet: Cardiac 2g Na,low cholest Activity: No Restrictions, As Tolerated Follow Up/Referral: Follow up with the PCP in 1-2 weeks Follow up with Dr. Desai in 1-2 weeks Medications: Resume home medications Discharge Statement: "Patient was advised to return to the ER or call 911 if any headaches, dizziness, shortness of breath, chest pain, abdominal pain, bleeding, fevers, or worsening of medical condition. Patient was counseled about treatment plan, medications, possible side effects, patientverbalized understanding. All questions were answered to the best of my ability. This discharge took greater then 30 minutes in planning, reviewing documentation, counseling the patient, and discussing with other team members." ASSESSMENT ASSESSMENT Assessment 53 yo male with known history of chronic AFib, diabetes mellitus type 2, hypertension, congestive heart failure initially presented to the hospital with a palpitation found to have 1. AFib with RVR converted into sinus rhythm after amiodarone. 2. Ventricular tachyarrhythmia status post cardioversion in ER 3. Elevated troponin suspect NSTEMI 4. Acute kidney injury suspected secondary to vasomotor nephropathy 5. Transaminitis 6. Hyperkalemia Date of Service: Jun 01, 2024 Billing Provider: RENEE YUAN MD Common Visit Codes: NOT BILLABLE RENEE YUAN MD Jun 01, 2024 15:43
--- NOTE | 2024-06-01 16:32 | DVHPN2 ---
Progress Note - Dictate Date Seen: Jun 01, 2024 Has the PT tested + for MRSA If YES, has PT been informed?: No Medical Necessity Reason Pt with a Central, PICC or Fol: No Subjective Patient had cardiac catheterization yesterday He has normal coronaries Patient has cardiomyopathy with CHF, ejection fraction 15% Liver enzymes trending down and stable Patient is tolerating diet Renal function is improving vital signs Vital Sign Date Time Temp Pulse Resp B/P (MAP) Pulse Ox O2 Delivery O2 Flow Rate FiO2 06/01/24 13:00 97.2 54 20 138/84 (102) 97 97.2 06/01/24 08:20 Room Air* 0 21 Total Intake and Output 05/31/24 05/31/24 06/01/24 15:00 23:00 07:00 Intake Total 25.2 ml 1533.9 ml 800 ml Output Total 1000 ml Balance 25.2 ml 1533.9 ml -200 ml medications Current Medications Medications Dose Ordered Sig/Howard Route Start Time Stop Time Status Last Admin Dose Admin Morphine Sulfate 2 mg Q30M PRN IV 05/29/24 22:30 Nitroglycerin 0.4 mg Q5MINP PRN SL 05/29/24 22:30 Diagnostic Test (Pha) 1 strip ACHS 05/30/24 07:00 06/01/24 11:45 1 STRIP Insulin Human Regular ACHS SC 05/30/24 07:00 05/30/24 22:09 3 UNITS Dextrose 50 ml UD PRN IV 05/29/24 22:30 Heparin Sodium/ Dextrose 250 ml @ 15.24 mls/ hr [id number] IV 05/30/24 01:30 UNV Furosemide 40 mg DAILY IV 05/31/24 10:00 06/01/24 09:55 40 MG Amiodarone HCl 200 mg Q12HR PO 05/31/24 22:00 06/01/24 09:56 200 MG Apixaban 5 mg BID PO 05/31/24 22:00 05/31/24 22:20 5 MG Sacubitril/ Valsartan 1 tab BID PO 05/31/24 22:00 06/01/24 09:55 1 TAB objective General: NAD, AAOX3 Chest: lung jo clear to auscultation Heart: RRR, no murmur Abdomen: non-distended, no tenderness to palpation, +BS laboratory and microbiology Laboratory Tests 06/01/24 01:16 Test 06/01/24 01:16 Range/Units Serum Glucose 114 H 74-106 mg/dL Problems(with codes): (1) Elevated liver enzymes (2) JEY (acute kidney injury) (3) Elevated troponin (4) Ventricular tachyarrhythmia (5) Dilated cardiomyopathy Prognosis Plan Advance diet as tolerated Continue to monitor labs Discharge planning is in progress Outpatient follow up GI Services as needed Plan discussed with: Patient PARVEEN WOODWARD MD Jun 01, 2024 16:32
[2024-06-02] VITALS (8 sets, daily range): BP systolic 98–117; BP diastolic 53–82; PULSE 45–157; RESP 17–19; TEMP 36.5; O2SAT 93–98
[2024-06-02 07:03] LABS: Chloride 102 mmol/L (98-107); Potassium 3.8 mmol/L (3.5-5.1)
[2024-06-02 07:04] LABS: Anion Gap 8 (5-15); Calcium 9.2 mg/dL (8.7-10.4); Carbon Dioxide 26 mmol/L (20-31)
[2024-06-02 07:09] LABS: BUN/Creatinine Ratio 13.3 (10.0-20.0); Blood Urea Nitrogen 16 mg/dL (9-23); Glucose 103 mg/dL (74-106)
[2024-06-02 07:15] LABS: Sodium 136 mmol/L (136-145)
--- NOTE | 2024-06-02 13:20 | DVHPN2 ---
Progress Note - Dictate Date Seen: Jun 02, 2024 Has the PT tested + for MRSA If YES, has PT been informed?: No Medical Necessity Reason Pt with a Central, PICC or Fol: No Subjective NAD vital signs Vital Sign Date Time Temp Pulse Resp B/P (MAP) Pulse Ox O2 Delivery O2 Flow Rate FiO2 06/02/24 13:00 97.7 45 17 111/58 (75) 93 97.7 06/02/24 08:20 Room Air* 0 21 Total Intake and Output 06/01/24 06/01/24 06/02/24 15:00 23:00 07:00 Intake Total 110 ml 1000 ml 330 ml Output Total 0 ml Balance 110 ml 1000 ml 330 ml medications Current Medications Medications Dose Ordered Sig/Howard Route Start Time Stop Time Status Last Admin Dose Admin Morphine Sulfate 2 mg Q30M PRN IV 05/29/24 22:30 Nitroglycerin 0.4 mg Q5MINP PRN SL 05/29/24 22:30 Diagnostic Test (Pha) 1 strip ACHS 05/30/24 07:00 06/02/24 10:22 1 STRIP Insulin Human Regular ACHS SC 05/30/24 07:00 05/30/24 22:09 3 UNITS Dextrose 50 ml UD PRN IV 05/29/24 22:30 Heparin Sodium/ Dextrose 250 ml @ 15.24 mls/ hr [id number] IV 05/30/24 01:30 UNV Furosemide 40 mg DAILY IV 05/31/24 10:00 06/01/24 09:55 40 MG Amiodarone HCl 200 mg Q12HR PO 05/31/24 22:00 06/02/24 09:56 200 MG Apixaban 5 mg BID PO 05/31/24 22:00 06/02/24 09:55 5 MG Sacubitril/ Valsartan 1 tab BID PO 05/31/24 22:00 06/02/24 09:57 1 TAB objective GENERAL:Normal, HEENT:Normal, NECK:Normal, LUNGS:Normal, CVS:Normal, ABDOMEN:Normal, MSK:Normal, SKIN:Normal, NEURO:Normal, :Normal laboratory and microbiology Laboratory Tests 06/02/24 06:07 06/01/24 01:16 Test 06/02/24 06:07 Range/Units Serum Glucose 103 74-106 mg/dL Assessment/Plan JEY likely cardiorenal Ventricular tachycardia History of AFib Acute on chronic HFrEF EF 15% NSTEMI type 2 likely due to above Hypertension Gout Hyperkalemia: Resolved Transaminitis s/p cath no stents placed EF 15% cards started entresto- monitor BP avoid hypotension lasix strict I/O Jey has resolved , stable from renal standpoint no new renal recs Plan discussed with: Patient JONATHAN YADAV MD Jun 02, 2024 13:20
--- NOTE | 2024-06-02 21:57 | DVHPN2 ---
Progress Note - Dictate Date Seen: Jun 02, 2024 (Late entryPatient seen at 10:00 a.m.) Has the PT tested + for MRSA If YES, has PT been informed?: No Medical Necessity Reason Pt with a Central, PICC or Fol: No Subjective He has normal coronaries Patient has cardiomyopathy with CHF, ejection fraction 15% Liver enzymes trending down and stable Patient is tolerating diet Renal function is improving vital signs Vital Sign Date Time Temp Pulse Resp B/P (MAP) Pulse Ox O2 Delivery O2 Flow Rate FiO2 06/02/24 16:42 97.6 48 17 110/78 (89) 97 97.6 06/02/24 08:20 Room Air* 0 21 Total Intake and Output 06/01/24 06/01/24 06/02/24 15:00 23:00 07:00 Intake Total 110 ml 1000 ml 330 ml Output Total 0 ml Balance 110 ml 1000 ml 330 ml medications Current Medications Medications Dose Ordered Sig/Howard Route Start Time Stop Time Status Last Admin Dose Admin Heparin Sodium/ Dextrose 250 ml @ 15.24 mls/ hr [id number] IV 05/30/24 01:30 UNV objective General: NAD, AAOX3 Chest: lung jo clear to auscultation Heart: RRR, no murmur Abdomen: non-distended, no tenderness to palpation, +BS laboratory and microbiology Laboratory Tests 06/02/24 06:07 06/01/24 01:16 Test 06/02/24 06:07 Range/Units Serum Glucose 103 74-106 mg/dL Problems(with codes): (1) Dilated cardiomyopathy (2) Elevated liver enzymes (3) JEY (acute kidney injury) (4) Elevated troponin (5) Ventricular tachyarrhythmia Prognosis Plan Advance diet as tolerated Continue to monitor labs Discharge planning is in progress Outpatient follow up GI Services as needed Plan discussed with: Other (Deanna Valderrama) PARVEEN WOODWARD MD Jun 02, 2024 21:57
[2024-06-03] MEDS ORDERED: INFLUENZA TRIVALENT 2024-2025 0.5 ML INJ IM ONE (07:00)
--- NOTE | 2024-06-10 10:37 | ECG ---
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
--- NOTE | 2024-06-12 13:22 | ECG ---
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
== END 2024-06-02 17:45 | disposition home or self-care (01) | DRG 190 ==
LOC: ER 17:17 → OVERFLOW 22:30 → TELE-WESTW 05-30 22:20
PROVIDERS: ADMIT Nurse Practitioner Family; ATTEND Hospitalist
PROC: 5A2204Z Restoration of Cardiac Rhythm, Single (ICD-10-PCS; 2024-05-29)
PROC: B211YZZ Fluoroscopy of Multiple Coronary Arteries using Other Contrast (ICD-10-PCS; principal; 2024-05-31)
PROC: B215YZZ Fluoroscopy of Left Heart using Other Contrast (ICD-10-PCS; 2024-05-31)
PROC: 4A023N7 Measurement of Cardiac Sampling and Pressure, Left Heart, Percutaneous Approach (ICD-10-PCS; 2024-05-31)
DX: I25.10 Atherosclerotic heart disease of native coronary artery without angina pectoris (principal); I21.A1 Myocardial infarction type 2; N17.0 Acute kidney failure with tubular necrosis; I50.23 Acute on chronic systolic (congestive) heart failure; I13.0 Hypertensive heart and chronic kidney disease with heart failure and stage 1 through stage 4 chronic kidney disease, or unspecified chronic kidney disease; I42.9 Cardiomyopathy, unspecified; I48.20 Chronic atrial fibrillation, unspecified; N18.9 Chronic kidney disease, unspecified; M10.9 Gout, unspecified; E11.22 Type 2 diabetes mellitus with diabetic chronic kidney disease; E87.5 Hyperkalemia; R74.01 Elevation of levels of liver transaminase levels; I47.20 Ventricular tachycardia, unspecified; Z79.2 Long term (current) use of antibiotics; Z79.899 Other long term (current) drug therapy; Z87.891 Personal history of nicotine dependence; Z79.84 Long term (current) use of oral hypoglycemic drugs; I25.2 Old myocardial infarction
CPT/HCPCS: 36415; 71045; 76705; 80048; 80053; 80076; 80307; 81001; 82570; 82962; 83036; 83605; 83735; 83880; 84156; 84300; 84484; 84550; 85025; 85610; 85730; 86704; 86706; 86708; 86803; 87340; 93005; 93306; 93458; 99152; G0378; J1815; J2250; Q9967